=== PATIENT | female | born 1935 | race Caucasian/White ===

== ENCOUNTER 2016-12-01 09:49 | Inpatient (IN) ==
--- NOTE | 2016-12-01 10:04 | Emergency Department Note ---
Disposition Clinical Impression: CHF exacerbation Qualifiers: Congestive heart failure type: unspecified congestive heart failure type Qualified Code(s): I50.9 - Heart failure, unspecified Disposition: Admitted As Inpatient Condition: Fair General Adult HPI - General Chief complaint: ED Recheck/Abnormal Lab/Rx Stated complaint: fluid retention Time Seen by Provider: 12/01/16 09:59 Source: patient, family Mode of arrival: private vehicle Limitations: no limitations Nursing Notes Reviewed: Yes Vital Signs Reviewed: Yes - History of Present Illness Pt Subjective Complaint: Sent here by Venue Attendant to be admitted for increased fluid retention Onset (ago): week(s) Location: lower extremity (bilateral LE edema) Radiation: non-radiation Pain Severity: mild Pain Scale: 0 Quality: dull Consistency: intermittent Improves with: rest Worsens with: other (palpation) Associated symptoms: Reports: cough, shortness of breath, weakness Treatments Prior to Arrival: none (has not taken home dose of lasix yet) - Related Data Home Medications Medication Instructions Recorded Confirmed Apixaban [Eliquis] 2.5 mg PO BID 02/25/15 01/01/16 Cholecalciferol (Vitamin D3) 10,000 unit PO QWEEK 02/25/15 01/01/16 [Vitamin D3] Furosemide [Lasix] 60 mg PO DAILY 02/25/15 01/01/16 Gabapentin [Neurontin] 100 mg PO TID 02/25/15 01/01/16 Insulin Glargine,Hum.rec.anlog 32 unit SQ DAILY 02/25/15 01/01/16 [Lantus Solostar] Levothyroxine [Synthroid] 88 mcg PO DAILY 02/25/15 01/01/16 Metoprolol [Lopressor] 100 mg PO DAILY 02/25/15 01/01/16 Potassium Chloride 10 meq PO TID 02/25/15 01/01/16 Ropinirole [Requip] 6 mg PO HS 02/25/15 01/01/16 Tramadol HCl [Tramadol HCl ER] 100 mg PO Q6H PRN 02/25/15 01/01/16 Calcitriol [Rocaltrol] 0.25 mcg PO DAILY 01/01/16 01/01/16 Losartan Potassium [Cozaar] 100 mg PO DAILY 01/01/16 01/01/16 Sitagliptin Phosphate [Januvia] 50 mg PO DAILY 01/01/16 01/01/16 Allergies Allergy/AdvReac Type Severity Reaction Status Date / Time Latex Allergy See Uncoded 02/26/15 18:43 Comments All systems ED: reviewed and negative except as stated. Constitutional: Reports: weight change ("varies daily" 169-180). Denies: fever , chills, weakness, night sweats Cardiovascular: Reports: dyspnea on exertion, orthopnea, edema. Denies: chest pain, palpitations, syncope, paroxysmal nocturnal dyspnea Respiratory: Reports: cough, dyspnea. Denies: wheezes, hemoptysis, stridor, sputum production Gastrointestinal: Denies: abdominal pain, nausea, vomiting Genitourinary: Denies: urgency, dysuria, frequency, hematuria Musculoskeletal: Denies: back pain, joint swelling, arthralgia Integumentary: Denies: rash Neurological: Denies: confusion, abnormal gait, vertigo Hematological/Lymphatic: Denies: easy bleeding, easy bruising Past Medical History - Past Medical History Attestation: Yes The following information was validated with the patient. Source: patient, old records reviewed, obtained from family Medical history: Reports: CHF, DVT (right leg three years ago), diabetes, GERD, hyperlipidemia, hypertension, renal disease Surgical history: Reports: appendectomy, hysterectomy Psychiatric history: Reports: no psych history - Social History Smoking Status: Never smoker Smokeless Tobacco Status: No Alcohol use: Reports: none Drug use: Reports: none Physical Exam - General Limitations: no limitations General appearance: alert, in no apparent distress - Head Head exam: atraumatic, normocephalic, normal inspection - Eye Eye exam: Present: normal appearance, PERRL. Absent: scleral icterus, conjunctival injection, periorbital swelling - ENT ENT exam: mucous membranes moist - Neck Neck exam: Present: normal inspection, full ROM, trachea midline. Absent: meningismus - Chest Chest inspection: Present: normal inspection - Respiratory Respiratory exam: Absent: respiratory distress, wheezes, stridor, accessory muscle use, prolonged expiratory phase - Expanded Respiratory Exam Location: rales: Left, Right, Lower - Cardiovascular Cardiovascular exam: Present: regular rate, normal rhythm, systolic murmur - Abdominal Exam Abdominal exam: Present: soft, Non-Tender. Absent: distention - Extremities Exam Extremities exam: Present: full ROM, tenderness, normal capillary refill, pedal edema. Absent: joint swelling, calf tenderness - Expanded Lower Extremity Exam Upper leg exam: Absent: tenderness, swelling Knee exam: Absent: tenderness, swelling Lower leg exam: Present: tenderness, swelling, Achilles tendon intact. Absent: ecchymosis, erythema, Homans' sign Ankle exam: Present: full ROM, swelling. Absent: tenderness, ecchymosis, deformity, crepitus, erythema Foot/toe exam: Present: full ROM, swelling. Absent: tenderness, abrasion, ecchymosis, deformity, crepitus, erythema Neurovascular/Tendon exam: Present: normal capillary refill, normal fine/light touch. Absent: pulse deficit, motor deficit, sensory deficit, tendon deficit, extremity cold to touch, pallor, foot drop Gait: not tested/not observed - Neurological Exam Neurological exam: Present: alert, oriented X3, CN II-XII intact - Psychiatric Psychiatric exam: Present: normal affect, normal mood Course Vital Signs Temperature 97.7 F 12/01/16 09:50 Pulse Rate 84 12/01/16 09:50 Respiratory Rate 18 12/01/16 09:50 Blood Pressure 146/71 12/01/16 09:50 O2 Sat by Pulse Oximetry 96 12/01/16 09:50 Temperature 97.7 F 12/01/16 09:50 Pulse Rate 84 12/01/16 09:50 Respiratory Rate 18 12/01/16 09:50 Blood Pressure 146/71 12/01/16 09:50 O2 Sat by Pulse Oximetry 96 12/01/16 09:50 Oxygen Delivery Oxygen Delivery Room Air Medical Decision Making - Medical Records Medical records reviewed: Yes I reviewed the patient's medical records. - Lab Data Lab results reviewed: Yes I reviewed the patient's lab results. Result diagrams: 12/01/16 10:19 - Radiology Data Radiology results reviewed: Yes I reviewed the patient's radiology results. - EKG Data EKG #1 EKG attestation: Yes I reviewed and interpreted this EKG. EKG shows normal: sinus rhythm Rate: normal Rhythm: NSR [place]/QRS: left axis deviation Voltage: increased voltage throughout, c/w LVH Heart block present: 1st Degree (kayode 216) Interpretation: unchanged when compared to prior tracing (date) (except KAYODE increased from 202 to 216) Attestation Statement - Attestation Attestation: I examined this patient and my medical decision-making was reviewed with the RESOURCE RECOVERY SPECIALIST/PA/Advanced Practice Nurse/Resident Physician. I agree with the documented findings, disposition and treatment plan as described except to the extent set forth below. Face to face time provided Patient presents at the recommendation of her primary care provider for increasing dyspnea and peripheral edema. She has a history of CHF. Appears in no acute distress on exam. Family at bedside
[2016-12-01] MEDS ORDERED: Furosemide 40 MG/4 ML VIAL IVP ONE (10:30)
[2016-12-01 10:31] LABS: Basophils # 0.1 K/mcL (0.0-0.2); Basophils % 0.7 %; Eosinophils # 0.4 K/mcL (0.0-0.6); Eosinophils % 4.1 %; Hematocrit 38.2 % (35.3-44.9); Hemoglobin 11.4 g/dL (11.5-15.4); Immature Granulocytes % 0.6 % (0-4); Lymphocytes # 2.5 K/mcL (0.6-4.6); Lymphocytes % 27.5 %; Mean Corpuscular HGB Conc 29.8 g/dL (31.6-35.5); Mean Corpuscular Hemoglobin 23.4 pg (28.0-33.3); Mean Corpuscular Volume 78.3 fL (83.0-100.0); Mean Platelet Volume 9.6 fL (9.4-12.4); Monocytes # 0.7 K/mcL (0.0-1.3); Monocytes % 7.5 %; Neutrophils # 5.4 K/mcL (1.6-8.9); Platelet Count 301 K/mcL (140-400); Red Blood Count 4.88 M/mcL (3.82-4.97); Red Cell Distribution Width 16.2 % (11.5-14.5); Segmented Neutrophils % 59.6 %
[2016-12-01 10:41] LABS: INR 1.3; Prothrombin Time 14.1 Seconds (9.4-12.1)
[2016-12-01 10:43] LABS: Albumin 3.8 g/dL (3.5-5.0); Albumin/Globulin Ratio 1.1 (1.1-2.2); Bilirubin,Direct 0.2 mg/dL (0.0-0.5); Bilirubin,Indirect 0.3 mg/dL (0.0-1.2); Bilirubin,Total 0.5 mg/dL (0.2-1.2); Globulin 3.4 g/dL (2.4-3.5); Potassium 4.4 mEq/L (3.5-4.5); Total Protein 7.2 g/dL (6.0-8.3)
[2016-12-01 11:10] LABS: Activated Partial Thrombo Time 28.3 Seconds (26.0-36.0)
[2016-12-01 11:21] LABS: Bilirubin,Urine Negative (Negative); Blood,Urine Negative (Negative); Clarity,Urine Cloudy (Clear); Color,Urine Yellow (Yellow); Glucose,Urine (UA) Normal (Normal); Ketones,Urine Negative (Negative); Leukocyte Esterase,Urine Small (Negative); Nitrite,Urine Positive (Negative); Protein,Urine Negative (Neg-Trace); Urobilinogen,Urine Normal (Normal)
[2016-12-01 11:24] LABS: Bacteria,Urine Many per hpf (None-Few); Hyaline Casts,Urine None Seen per lpf (None-Few); RBC,Urine 0-3 per hpf (0-3); Squamous Epithelial Cell,Urine Moderate per lpf (None-Few); WBC,Urine 30-50 per hpf (0-3)
[2016-12-01] MEDS ORDERED: Acetaminophen 325 MG TABLET PO PRN (14:08)
[2016-12-01] MEDS ORDERED: Naloxone 0.4 MG/ML INJ IVP PRN (14:08)
[2016-12-01] MEDS ORDERED: Ondansetron ODT 4 MG TAB.RAPDIS SL PRN (14:08)
[2016-12-01] MEDS ORDERED: Gabapentin 100 MG CAPSULE PO PRN (14:10)
[2016-12-01] MEDS ORDERED: *HR* Dextrose 50 % in Water (Syg) 50 ML SYRINGE IVP PRN (14:36)
[2016-12-01] MEDS ORDERED: Dextrose Gel 15 GM PO PRN ×2 (14:36)
[2016-12-01] MEDS ORDERED: D5% in Water 1,000 ML IVC PRN (14:36)
[2016-12-01 15:10] LABS: Hemoglobin A1C 8.3 %
--- NOTE | 2016-12-01 15:45 | Internal Med History&Physical ---
Date of Encounter: 12/01/16 Time of Encounter: 15:42 Assessment and Plan (1) Acute on chronic congestive heart failure Current visit: Yes Status: Acute Patient with increased dyspnea on exertion, increasing bilateral lower extremity edema, coughing up white frothy sputum. Chest x-ray shows mild pulmonary vascular congestion without pulmonary edema and stable cardiomegaly. On exam patient has crackles in bilateral bases, bilateral lower extremity +3 edema. Echocardiogram from 2015 shows mild systolic and diastolic dysfunction, EF 45-50%. 40 mg Lasix IV push twice a day Daily weights Strict I's and O's Cardiac diet with 1.5 L fluid restriction Continuous classroom monitor trend troponins Echocardiogram in the morning Qualifiers: Congestive heart failure type: combined Qualified Code(s): I50.43 - Acute on chronic combined systolic (congestive) and diastolic (congestive) heart failure (2) Type 2 diabetes mellitus Current visit: Yes Status: Acute Diabetic diet Check A1c Check blood sugars before meals and at bedtime Basal dose of insulin 30u HS (home dose is 50u HS) Sliding scale correction dose before meals at bedtime hypoglycemic protocol Qualifiers: Diabetes mellitus complication status: with unspecified complications Diabetes mellitus termite technician insulin use: with termite technician use Qualified Code(s) : E11.8 - Type 2 diabetes mellitus with unspecified complications; Z79.4 - detention (current) use of insulin (3) Acute kidney injury superimposed on chronic kidney disease Current visit: Yes Status: Acute Creatinine 1.54, up from previous baseline. Hold valsartan, avoid NSAIDs. We are diuresing with Lasix, which may or may not deteriorate patient's kidney function. Recheck chemistry in the morning. (4) DVT prophylaxis Current visit: Yes Status: Acute anti-embolic stockings Patient on Eliquis, additional pharmacologic prophylaxis not indicated. Internal Medicine - H&P: HPI Chief complaint: shortness of breath Admitted From: Emergency Dept Plans for Post Hospital Care: Home History of present illness: Ms. Adams is a 81 year old female with hypertension, hyperlipidemia, chronic knee disease, atrial fibrillation, type 2 diabetes, CHF who presented to the emergency department today on the advice of the cardiology ELECTRIC REPAIR SUPERVISOR she saw in clinic yesterday. Patient has increased lower extremity edema, and has been coughing up frothy white sputum. Patient reports occasional chest pain, generalized weakness, shortness of breath on exertion. She denies any lightheadedness, palpitations, numbness or tingling. She reports occasional chest pain, not out of the ordinary for her and none today. Evaluation emergency department included a chest x-ray which showed mild pulmonary vascular congestion without pulmonary edema, and stable cardiomegaly. UA was positive for UTI. BNP was 143 , down from previous of 302. She would have AKA with creatinine of 1.54. On exam, patient alert and oriented, in no acute distress. Heart had a regular rhythm with normal rate, lungs had crackles in bilateral bases. Bilateral lower extremities had +4 pitting edema. Past Med Surg Social Fam HX - Past Medical History Medical history: CHF, DVT, diabetes, GERD, hyperlipidemia, hypertension, renal disease Psychiatric history: no psych history - Past Surgical History Surgical History: appendectomy, hysterectomy - Social History Smoking Status: Never smoker Smokeless Tobacco Status: No Alcohol use: none Drug use: none - Family History Mother Living Status: Age at : 98 Father Living Status: Age at : 62 Cause of : Cancer Hx Family Cancer: Yes Internal Medicine - H&P: Meds Apixaban [Eliquis] 2.5 mg PO BID 02/25/15 [History] Furosemide [Lasix] 80 mg PO DAILY 02/25/15 [History] Gabapentin [Neurontin] 100 mg PO TID PRN 02/25/15 [History] Insulin Glargine,Hum.rec.anlog [Lantus Solostar] 50 unit SQ HS 02/25/15 [History ] Levothyroxine [Synthroid] 88 mcg PO DAILY 02/25/15 [History] Potassium Chloride 10 meq PO TID 02/25/15 [History] Ropinirole [Requip] 6 mg PO HS 02/25/15 [History] Tramadol HCl [Tramadol HCl ER] 100 mg PO Q6H PRN 02/25/15 [History] Calcitriol [Rocaltrol] 0.25 mcg PO DAILY 01/01/16 [History] Losartan Potassium [Cozaar] 100 mg PO DAILY 01/01/16 [History] Sitagliptin Phosphate [Januvia] 50 mg PO DAILY 01/01/16 [History] Gluc/Vicente-MSM#1/Vit C/[place]/Bor [Cvs Nkohxefkzub-Nwfegz-WAU] 1 tab PO HS [History] Insulin ASPART [Novolog Flexpen] 12 unit SQ TIDWM MDD plus sliding scale [History] Metoprolol Succinate 100 mg PO DAILY 12/01/16 [History] Oxygen 2 l .ROUTE HS 12/01/16 [History] Allergies Latex Allergy (Uncoded 02/26/15 18:43) See Comments All Systems PM: A 10-system review of systems was performed and is negative for pertinent findings except as documented above in the HPI. - Constitutional Constitutional: weakness, no chills, no fever(s), no night sweats - EENT Eyes: no change in vision, no discharge, no pain, no photophobia Ears: no ear discharge, no ear pain, no tinnitus Nose, mouth and throat: no dysphagia, no nasal discharge, no neck pain, no sore throat - Cardiovascular Cardiovascular ROS IM: chest pain (occasional, none today), dyspnea, dyspnea on exertion, edema, no diaphoresis, no lightheadedness, no palpitations, no syncope - Respiratory Respiratory: cough, no dyspnea, no wheezing, no excessive phlegm production - Gastrointestinal Gastrointestinal: no abdominal pain, no diarrhea, no hematemesis, no hematochezia, no melena, no nausea, no vomiting - Genitourinary Genitourinary: no change in urinary stream, no dysuria, no flank pain, no hematuria - Musculoskeletal Musculoskeletal ROS IM: no numbness, no tingling - Integumentary Integumentary IM: no rash, no unusual bruising - Neurological Neurological ROS: no confusion, no convulsions, no focal weakness, no numbness, no tingling, no tremor(s) - Hematologic/Lymphatic Hematologic/Lymphatic: no easy bruising - Constitutional Vitals: Temp Pulse Resp BP Pulse Ox 97.7 F 93 16 109/50 94 12/01/16 09:50 12/01/16 14:09 12/01/16 14:20 12/01/16 14:20 12/01/16 14:09 General appearance: Present: A&O X 3, pleasant, no acute distress - Head Head exam: Present: atraumatic, normocephalic - Eye Eye exam: Present: PERRL, conjuntiva pink, sclera anicteric Pupils: Present: PERRL - Neck Neck exam general surgery: Present: supple, trachea midline. Absent: lymphadenopathy - Respiratory Respiratory exam: Present: rales (bilateral bases). Absent: accessory muscle use, rhonchi, wheezes - Cardiovascular Cardiovascular exam: Present: irregular rhythm, +S1, +S2. Absent: diastolic murmur, gallop, rubs, systolic murmur - GI/Abdominal GI/Abdominal exam: Present: normal bowel sounds, soft, no peritoneal signs. Absent: distended, tenderness - Extremities Exam Extremities exam: Present: pedal edema (BLE+3 edema), warm, radial pulses palpable and symetrical. Absent: calf tenderness, cyanotic - Neurological Exam Neurological exam: Present: CN II-XII intact, oriented X3, no focal deficits. Absent: facial droop, speech deficit - Skin Skin exam: Present: dry, intact Internal Med - H&P Results - Labs CBC & Chem 7: 12/01/16 10:19 12/01/16 10:19 Labs: All Lab Results (24 Hours) 12/01/16 12/01/16 12/01/16 Range/Units 10:19 10:19 10:19 WBC 9.1 (4.3-11.1) K/mcL RBC 4.88 (3.82-4.97) M/mcL Hgb 11.4 L (11.5-15.4) g/dL Hct 38.2 (35.3-44.9) % MCV 78.3 L (83.0-100.0) fL MCH 23.4 L (28.0-33.3) pg MCHC 29.8 L (31.6-35.5) g/dL RDW 16.2 H (11.5-14.5) % Plt Count 301 (140-400) K/mcL MPV 9.6 (9.4-12.4) fL Immature Gran % 0.6 (0-4) % Seg Neutrophils % 59.6 % Lymphocytes % 27.5 % Monocytes % 7.5 % Eosinophils % 4.1 % Basophils % 0.7 % Neutrophils # 5.4 (1.6-8.9) K/mcL Lymphocytes # 2.5 (0.6-4.6) K/mcL Monocytes # 0.7 (0.0-1.3) K/mcL Eosinophils # 0.4 (0.0-0.6) K/mcL Basophils # 0.1 (0.0-0.2) K/mcL PT 14.1 H (9.4-12.1) Seconds INR 1.3 APTT 28.3 (26.0-36.0) Seconds Sodium 140 (136-145) mEq/L Potassium 4.4 (3.5-4.5) mEq/L Chloride 103 (98-109) mEq/L Carbon Dioxide 30 H (19-29) mEq/L BUN 30 H (7-20) mg/dL Creatinine 1.54 H (0.57-1.11) mg/dL Est GFR ( Amer) 39 L (> 60) Est GFR (Non-Af Amer) 32 L (> 60) BUN/Creatinine Ratio 19 (6-26) Glucose 159 H (70-99) mg/dL POC Glucose (58-89) Est Mean Plasma Glucose mg/dl Hemoglobin A1c ( - 5.6) % Calculated Osmolality 300 (280-300) Calcium 10.0 (8.6-10.8) mg/dL Total Bilirubin 0.5 (0.2-1.2) mg/dL Direct Bilirubin 0.2 (0.0-0.5) mg/dL Indirect Bilirubin 0.3 (0.0-1.2) mg/dL AST 17 (5-34) Units/L ALT 14 (0-55) Units/L Alkaline Phosphatase 71 (38-126) Units/L Troponin I (0-0.03) ng/mL B-Natriuretic Peptide (0-100) pg/mL Serum Total Protein 7.2 (6.0-8.3) g/dL Albumin 3.8 (3.5-5.0) g/dL Globulin 3.4 (2.4-3.5) g/dL Albumin/Globulin Ratio 1.1 (1.1-2.2) Urine Color (Yellow) Urine Clarity (Clear) Urine pH (5.0-8.0) pH Units Ur Specific [place] (1.010-1.025) Urine Protein (Neg-Trace) mg/dL Urine Glucose (UA) (Normal) mg/dL Urine Ketones (Negative) mg/dL Urine Blood (Negative) Urine Nitrite (Negative) Urine Bilirubin (Negative) Urine Urobilinogen (Normal) mg/dL Ur Leukocyte Esterase (Negative) Urine Microscopic RBC (0-3) per hpf Urine Microscopic WBC (0-3) per hpf Ur Squamous Epith Cells (None-Few) per lpf Urine Bacteria (None-Few) per hpf Hyaline Casts (None-Few) per lpf Ur Culture Indicated? (NO) 12/01/16 12/01/16 12/01/16 Range/Units 10:19 10:19 10:19 WBC (4.3-11.1) K/mcL RBC (3.82-4.97) M/mcL Hgb (11.5-15.4) g/dL Hct (35.3-44.9) % MCV (83.0-100.0) fL MCH (28.0-33.3) pg MCHC (31.6-35.5) g/dL RDW (11.5-14.5) % Plt Count (140-400) K/mcL MPV (9.4-12.4) fL Immature Gran % (0-4) % Seg Neutrophils % % Lymphocytes % % Monocytes % % Eosinophils % % Basophils % % Neutrophils # (1.6-8.9) K/mcL Lymphocytes # (0.6-4.6) K/mcL Monocytes # (0.0-1.3) K/mcL Eosinophils # (0.0-0.6) K/mcL Basophils # (0.0-0.2) K/mcL PT (9.4-12.1) Seconds INR APTT (26.0-36.0) Seconds Sodium (136-145) mEq/L Potassium (3.5-4.5) mEq/L Chloride (98-109) mEq/L Carbon Dioxide (19-29) mEq/L BUN (7-20) mg/dL Creatinine (0.57-1.11) mg/dL Est GFR ( Amer) (> 60) Est GFR (Non-Af Amer) (> 60) BUN/Creatinine Ratio (6-26) Glucose (70-99) mg/dL POC Glucose (58-89) Est Mean Plasma Glucose 192 mg/dl Hemoglobin A1c 8.3 H ( - 5.6) % Calculated Osmolality (280-300) Calcium (8.6-10.8) mg/dL Total Bilirubin (0.2-1.2) mg/dL Direct Bilirubin (0.0-0.5) mg/dL Indirect Bilirubin (0.0-1.2) mg/dL AST (5-34) Units/L ALT (0-55) Units/L Alkaline Phosphatase (38-126) Units/L Troponin I 0.01 (0-0.03) ng/mL B-Natriuretic Peptide 163 H (0-100) pg/mL Serum Total Protein (6.0-8.3) g/dL Albumin (3.5-5.0) g/dL Globulin (2.4-3.5) g/dL Albumin/Globulin Ratio (1.1-2.2) Urine Color (Yellow) Urine Clarity (Clear) Urine pH (5.0-8.0) pH Units Ur Specific [place] (1.010-1.025) Urine Protein (Neg-Trace) mg/dL Urine Glucose (UA) (Normal) mg/dL Urine Ketones (Negative) mg/dL Urine Blood (Negative) Urine Nitrite (Negative) Urine Bilirubin (Negative) Urine Urobilinogen (Normal) mg/dL Ur Leukocyte Esterase (Negative) Urine Microscopic RBC (0-3) per hpf Urine Microscopic WBC (0-3) per hpf Ur Squamous Epith Cells (None-Few) per lpf Urine Bacteria (None-Few) per hpf Hyaline Casts (None-Few) per lpf Ur Culture Indicated? (NO) 12/01/16 12/01/16 12/01/16 Range/Units 10:30 11:59 15:47 WBC (4.3-11.1) K/mcL RBC (3.82-4.97) M/mcL Hgb (11.5-15.4) g/dL Hct (35.3-44.9) % MCV (83.0-100.0) fL MCH (28.0-33.3) pg MCHC (31.6-35.5) g/dL RDW (11.5-14.5) % Plt Count (140-400) K/mcL MPV (9.4-12.4) fL Immature Gran % (0-4) % Seg Neutrophils % % Lymphocytes % % Monocytes % % Eosinophils % % Basophils % % Neutrophils # (1.6-8.9) K/mcL Lymphocytes # (0.6-4.6) K/mcL Monocytes # (0.0-1.3) K/mcL Eosinophils # (0.0-0.6) K/mcL Basophils # (0.0-0.2) K/mcL PT (9.4-12.1) Seconds INR APTT (26.0-36.0) Seconds Sodium (136-145) mEq/L Potassium (3.5-4.5) mEq/L Chloride (98-109) mEq/L Carbon Dioxide (19-29) mEq/L BUN (7-20) mg/dL Creatinine (0.57-1.11) mg/dL Est GFR ( Amer) (> 60) Est GFR (Non-Af Amer) (> 60) BUN/Creatinine Ratio (6-26) Glucose (70-99) mg/dL POC Glucose 117 H 263 H (58-89) Est Mean Plasma Glucose mg/dl Hemoglobin A1c ( - 5.6) % Calculated Osmolality (280-300) Calcium (8.6-10.8) mg/dL Total Bilirubin (0.2-1.2) mg/dL Direct Bilirubin (0.0-0.5) mg/dL Indirect Bilirubin (0.0-1.2) mg/dL AST (5-34) Units/L ALT (0-55) Units/L Alkaline Phosphatase (38-126) Units/L Troponin I (0-0.03) ng/mL B-Natriuretic Peptide (0-100) pg/mL Serum Total Protein (6.0-8.3) g/dL Albumin (3.5-5.0) g/dL Globulin (2.4-3.5) g/dL Albumin/Globulin Ratio (1.1-2.2) Urine Color Yellow (Yellow) Urine Clarity Cloudy A (Clear) Urine pH 7.0 (5.0-8.0) pH Units Ur Specific [place] 1.020 (1.010-1.025) Urine Protein Negative (Neg-Trace) mg/dL Urine Glucose (UA) Normal (Normal) mg/dL Urine Ketones Negative (Negative) mg/dL Urine Blood Negative (Negative) Urine Nitrite Positive A (Negative) Urine Bilirubin Negative (Negative) Urine Urobilinogen Normal (Normal) mg/dL Ur Leukocyte Esterase Small H (Negative) Urine Microscopic RBC 0-3 (0-3) per hpf Urine Microscopic WBC 30-50 H (0-3) per hpf Ur Squamous Epith Cells Moderate H (None-Few) per lpf Urine Bacteria Many H (None-Few) per hpf Hyaline Casts None Seen (None-Few) per lpf Ur Culture Indicated? YES A (NO) 12/01/16 Range/Units 17:07 WBC (4.3-11.1) K/mcL RBC (3.82-4.97) M/mcL Hgb (11.5-15.4) g/dL Hct (35.3-44.9) % MCV (83.0-100.0) fL MCH (28.0-33.3) pg MCHC (31.6-35.5) g/dL RDW (11.5-14.5) % Plt Count (140-400) K/mcL MPV (9.4-12.4) fL Immature Gran % (0-4) % Seg Neutrophils % % Lymphocytes % % Monocytes % % Eosinophils % % Basophils % % Neutrophils # (1.6-8.9) K/mcL Lymphocytes # (0.6-4.6) K/mcL Monocytes # (0.0-1.3) K/mcL Eosinophils # (0.0-0.6) K/mcL Basophils # (0.0-0.2) K/mcL PT (9.4-12.1) Seconds INR APTT (26.0-36.0) Seconds Sodium (136-145) mEq/L Potassium (3.5-4.5) mEq/L Chloride (98-109) mEq/L Carbon Dioxide (19-29) mEq/L BUN (7-20) mg/dL Creatinine (0.57-1.11) mg/dL Est GFR ( Amer) (> 60) Est GFR (Non-Af Amer) (> 60) BUN/Creatinine Ratio (6-26) Glucose (70-99) mg/dL POC Glucose (58-89) Est Mean Plasma Glucose mg/dl Hemoglobin A1c ( - 5.6) % Calculated Osmolality (280-300) Calcium (8.6-10.8) mg/dL Total Bilirubin (0.2-1.2) mg/dL Direct Bilirubin (0.0-0.5) mg/dL Indirect Bilirubin (0.0-1.2) mg/dL AST (5-34) Units/L ALT (0-55) Units/L Alkaline Phosphatase (38-126) Units/L Troponin I 0.02 (0-0.03) ng/mL B-Natriuretic Peptide (0-100) pg/mL Serum Total Protein (6.0-8.3) g/dL Albumin (3.5-5.0) g/dL Globulin (2.4-3.5) g/dL Albumin/Globulin Ratio (1.1-2.2) Urine Color (Yellow) Urine Clarity (Clear) Urine pH (5.0-8.0) pH Units Ur Specific [place] (1.010-1.025) Urine Protein (Neg-Trace) mg/dL Urine Glucose (UA) (Normal) mg/dL Urine Ketones (Negative) mg/dL Urine Blood (Negative) Urine Nitrite (Negative) Urine Bilirubin (Negative) Urine Urobilinogen (Normal) mg/dL Ur Leukocyte Esterase (Negative) Urine Microscopic RBC (0-3) per hpf Urine Microscopic WBC (0-3) per hpf Ur Squamous Epith Cells (None-Few) per lpf Urine Bacteria (None-Few) per hpf Hyaline Casts (None-Few) per lpf Ur Culture Indicated? (NO) - Diagnostic Studies Chest x-ray Additional comments: Chest X-Ray 12/01/16 10:03 IMPRESSION: Stable mild cardiomegaly. Pulmonary vascular congestion without overt pulmonary edema. D/ / Monster Mcgowan MD / Monster Mcgowan MD Interpreting Provider: Monster Mcgowan MD
[2016-12-01] MEDS: Furosemide 40 MG/4 ML VIAL IVP SCH (17:02)
[2016-12-01] MEDS: Insulin LISPRO 300 UNITS/3 ML VIAL SQ SCH ×2 (17:04→21:12)
[2016-12-01] MEDS: traMADol 50 MG TABLET PO PRN (18:44)
--- NOTE | 2016-12-01 20:27 | Electrocardiograph Report ---
[place] [id number] Test Date: 2016-12-01 Pat Name: Cori Adams Department: 105 Room: 2A26 Gender: F Rn Flight: SAM : [id number] Requested By: Leeann Pandya Order Number: [id number] Reading MD: Yg Bauer MD Measurements Intervals [place] Rate: 89 P: 83 MD: 216 QRS: -21 QRSD: 105 T: 72 QT: 379 QTc: 426 Interpretive Statements SINUS RHYTHM WITH FIRST DEGREE AV BLOCK BORDERLINE LEFT AXIS DEVIATION Poor R wave progression LEFT VENTRICULAR HYPERTROPHY AND ST-T CHANGE Electronically Signed On 12-01-2016 20:26:16 EDT by Yg Bauer MD
[2016-12-01] MEDS: APIXABAN 2.5 MG TABLET PO SCH (21:11)
[2016-12-01] MEDS: Insulin DETEMIR 100 UNIT/ML X5UNITS SQ SCH (21:12)
[2016-12-02] MEDS: traMADol 50 MG TABLET PO PRN ×2 (00:04→05:54)
[2016-12-02 03:27] LABS: Basophils # 0.1 K/mcL (0.0-0.2); Basophils % 0.6 %; Eosinophils # 0.4 K/mcL (0.0-0.6); Eosinophils % 4.1 %; Hematocrit 36.9 % (35.3-44.9); Hemoglobin 11.3 g/dL (11.5-15.4); Immature Granulocytes % 0.5 % (0-4); Lymphocytes # 2.2 K/mcL (0.6-4.6); Mean Corpuscular HGB Conc 30.6 g/dL (31.6-35.5); Mean Corpuscular Hemoglobin 24.1 pg (28.0-33.3); Mean Corpuscular Volume 78.7 fL (83.0-100.0); Mean Platelet Volume 9.9 fL (9.4-12.4); Monocytes # 0.6 K/mcL (0.0-1.3); Monocytes % 6.2 %; Neutrophils # 6.6 K/mcL (1.6-8.9); Platelet Count 280 K/mcL (140-400); Red Blood Count 4.69 M/mcL (3.82-4.97); Red Cell Distribution Width 16.4 % (11.5-14.5); Segmented Neutrophils % 66.6 %
[2016-12-02 03:38] LABS: Calcium 10.2 mg/dL (8.6-10.8); Chol/HDL Ratio 3.6 (0-4.9); Potassium 4.1 mEq/L (3.5-4.5)
[2016-12-02] MEDS: APIXABAN 2.5 MG TABLET PO SCH ×2 (08:34→21:52)
[2016-12-02] MEDS: Furosemide 40 MG/4 ML VIAL IVP SCH ×2 (08:34→15:52)
[2016-12-02] MEDS: Metoprolol XL (24 HR) Succ 50 MG TAB.ER.24H PO SCH (08:34)
[2016-12-02] MEDS: Insulin LISPRO 300 UNITS/3 ML VIAL SQ SCH ×4 (08:34→22:01)
--- NOTE | 2016-12-02 10:27 | Internal Med Progress Note ---
Date of Encounter: 12/02/16 Time of Encounter: 10:25 - Assessment and plan (1) UTI (urinary tract infection) Current Visit: Yes Status: Acute Assessment and plan: asymptomatic. Urinalysis suggestive of UTI, continue IV Rocephin and follow up final urine culture. Preliminary urine culture grows gram-negative rods. Qualifiers: Urinary tract infection type: site unspecified Hematuria presence: without hematuria Qualified Code(s): N39.0 - Urinary tract infection, site not specified (2) CHF exacerbation Current Visit: Yes Status: Acute Assessment and plan: mproving clinically. Repeat echocardiogram [id number]% ejection fraction which is reduced from her previous echocardiogram, with global left ventricular hypokinesis mild left atrial dilation. Cardiology consulted,appreciate recommendations. Agree with current management and recommend aspirin and statin. Continue IV Lasix and beta lindy, hold losartan for now. Fluid restriction, urine output monitoring. Continue telemetry monitoring. Qualifiers: Congestive heart failure type: systolic Qualified Code(s): I50.23 - Acute on chronic systolic (congestive) heart failure (3) Hypothyroidism Current Visit: Yes Status: Chronic Assessment and plan: continue levothyroxin. Qualifiers: Hypothyroidism type: unspecified Qualified Code(s): E03.9 - Hypothyroidism , unspecified (4) Type 2 diabetes mellitus Current Visit: Yes Status: Chronic Assessment and plan: Accu-Chek blood glucose monitoring with basal bolus insulin regimen. Diabetic diet. Qualifiers: Diabetes mellitus complication status: with kidney complications Diabetes mellitus complication detail: with chronic kidney disease Diabetes mellitus manager intermediate insulin use: with manager intermediate use Chronic kidney disease stage: stage 3 (moderate) Qualified Code(s): E11.22 - Type 2 diabetes mellitus with diabetic chronic kidney disease; N18.3 - Chronic kidney disease, stage 3 ( moderate); Z79.4 - residential (current) use of insulin (5) Acute kidney injury superimposed on chronic kidney disease Current Visit: Yes Status: Chronic Assessment and plan: stable kidney function; continue to monitor and avoid new nephrotoxic agents; (6) DVT (deep venous thrombosis) Current Visit: Yes Status: Chronic Assessment and plan: Patient noted to be on Eliquis for mcc anticoagulation for recurrent DVT; continue the same and repeat Venous Doppler of right LE for acute DVT; Qualifiers: DVT location: lower extremity Affected thrombotic vein of extremity: unspecified vein of extremity Laterality: right Chronicity: chronic Qualified Code(s): 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 Absent: accessory muscle use, rales, rhonchi, wheezes - Cardiovascular Cardiovascular exam: Present: irregular rhythm, +S1, +S2, systolic murmur. Absent: diastolic murmur, gallop, rubs - GI/Abdominal GI/Abdominal exam: Present: normal bowel sounds, soft, no peritoneal signs. Absent: distended, tenderness - Extremities Exam Extremities exam: Present: full ROM, pedal edema (improving), tenderness (Right leg tenderness+), warm, radial pulses palpable and symetrical. Absent: calf tenderness, cyanotic Internal Medicine: Result - Labs CBC & Chem 7: 12/02/16 03:06 12/02/16 03:06 Labs: Short CBC 12/02/16 Range/Units 03:06 WBC 10.0 (4.3-11.1) K/mcL Hgb 11.3 L (11.5-15.4) g/dL Hct 36.9 (35.3-44.9) % Plt Count 280 (140-400) K/mcL Neutrophils # 6.6 (1.6-8.9) K/mcL BMP 12/02/16 03:06 Sodium 141 Potassium 4.1 Chloride 102 Carbon Dioxide 29 BUN 31 H Creatinine 1.58 H Glucose 149 H Calcium 10.2 Cardiac Enzymes 12/01/16 12/01/16 Range/Units 17:07 22:25 Troponin I 0.02 0.03 (0-0.03) ng/mL - ABG Interpretation ABG results: PT/INR, D-dimer PT 14.1 Seconds (9.4-12.1) H 12/01/16 10:19 Consult Discharge Plan - Plan Referrals: Leeann Pedersen CNP [Primary Care Provider] - (Web requested 12/01/16)
--- NOTE | 2016-12-02 12:00 | Cardiology Consult Note ---
Date of Encounter: 12/02/16 Time of Encounter: 11:54 Assessment and Plan (1) Acute on chronic congestive heart failure Current Visit: Yes Status: Acute H/o mild non-ischemic cardiomyopathy with EF 45% in 2014. TTE this admission shows severe global systolic dysfunction. EF 25-30%. Mild MR. [facility] 01/2016 showed mild non-obstructive CAD. No current chest pain. Reports mild chest pain in the past few months. No indication for re-peat [facility]. Presented in fluid overload. Now improved after IV lasix. Continue toprol Xl. No gómez-inhibitor d/t A/CKD. Continue IV lasix. Negative 550 ml overnight. -1.7 kg. CHF education reviewed with patient and family. Strict I&O and daily weight. Low sodium diet. Qualifiers: Congestive heart failure type: combined Qualified Code(s): I50.43 - Acute on chronic combined systolic (congestive) and diastolic (congestive) heart failure (2) CAD (coronary artery disease) Current Visit: Yes Status: Chronic H/o mild CAD on [facility] 01/2016. No current chest pain. Troponin negative. Qualifiers: Coronary Disease-Associated Artery/Lesion type: pala artery [place] vs. transplanted heart: pala heart Associated angina: without angina Qualified Code(s): I25.10 - Atherosclerotic heart disease of pala coronary artery without angina pectoris (3) Atrial fibrillation Current Visit: Yes Status: Ruled-out Patient reported to have afib on EKG. EKG reviewed and shows SR with first degree block. Telemetry review does not show any afib. Patient reports history of "irregular heart rhythm." Records reviewed. No documented afib. She is on eliquis for history of DVT. Qualifiers: Atrial fibrillation type: unspecified Qualified Code(s): I48.91 - Unspecified atrial fibrillation Discussion w patient/family: The assessment and plan as outlined above was discussed with the patient and/or family members who expressed understanding and agreement. All questions were answered. Thank you for involving us in the care of your patient. Please call with any questions. History of Present Illness Consult date: 12/02/16 Requesting physician: Carlotta Ramos Consult reason: Acute on chronic systolic CHF Chief complaint: SOB, orthopnea, BLE edema History of present illness: Ms. Adams is an 81 year old female with PMH of CKD, DM, lower extremity cellulitis, leg cramping, hx of DVT on Eliquis, CHF EF 45-50% with no significant CAD on most recent [facility] 01/2016, previous mild-moderate MR. She was recommended to go to the ER after a recent cardiology office visit. She c/o increasing BLE edema, 2 pillow orthopnea, and abdominal distension. She reports a 32 lb weight gain over the last year. She presented to the ER and initial work -up included CXR that showed cardiomegaly with pulmonary vascular congestion with no acute pulmonary edema and BNP elevated at 163. She had mild DANA on CKD. She is being treated with IV lasix and symptoms are improving. Cardiology consulted for abnormal echocardiogram. Past Med Surg Social Fam HX - Past Medical History Medical history: atrial fibrillation (Patient thinks she has a history of afib in the past. Not previously documented. ), CHF, DVT, diabetes, GERD, hyperlipidemia, hypertension, renal disease Psychiatric history: no psych history - Past Surgical History Surgical History: appendectomy, hysterectomy - Social History Smoking Status: Never smoker Smokeless Tobacco Status: No Alcohol use: none Drug use: none - Family History Mother Living Status: Age at : 98 Father Living Status: Age at : 62 Cause of : Cancer Hx Family Cancer: Yes Medications and Allergies Apixaban [Eliquis] 2.5 mg PO BID 02/25/15 [History] Furosemide [Lasix] 80 mg PO DAILY 02/25/15 [History] Gabapentin [Neurontin] 100 mg PO TID PRN 02/25/15 [History] Insulin Glargine,Hum.rec.anlog [Lantus Solostar] 50 unit SQ HS 02/25/15 [History ] Levothyroxine [Synthroid] 88 mcg PO DAILY 02/25/15 [History] Potassium Chloride 10 meq PO TID 02/25/15 [History] Ropinirole [Requip] 6 mg PO HS 02/25/15 [History] Tramadol HCl [Tramadol HCl ER] 100 mg PO Q6H PRN 02/25/15 [History] Calcitriol [Rocaltrol] 0.25 mcg PO DAILY 01/01/16 [History] Losartan Potassium [Cozaar] 100 mg PO DAILY 01/01/16 [History] Sitagliptin Phosphate [Januvia] 50 mg PO DAILY 01/01/16 [History] Gluc/Vicente-MSM#1/Vit C/[place]/Bor [Cvs Rsyvleprsyy-Bynnfz-EEW] 1 tab PO HS [History] Insulin ASPART [Novolog Flexpen] 12 unit SQ TIDWM MDD plus sliding scale [History] Metoprolol Succinate 100 mg PO DAILY 12/01/16 [History] Oxygen 2 l .ROUTE HS 12/01/16 [History] Allergies Latex Allergy (Uncoded 02/26/15 18:43) See Comments All Systems Review: A 10-system review of systems was performed and is negative for pertinent findings except as documented above in the HPI. Physical Examination Vital Signs, Last 4 Hours Temp Pulse Resp BP Pulse Ox 12/02/16 11:10 98.5 F 78 16 115/55 92 12/02/16 08:45 92 12/02/16 08:29 98.2 F 78 16 106/63 90 General: Conversant, No Apparent Distress HEENT: Atraumatic, Normocephaly, Mucus Membranes Moist Neck: No JVD, Normal carotid pulses Cardiac: Reg Rate and Rhythm, Normal S1 and S2, No Murmur Lungs: Normal Breath Sounds, No Wheeze, Rales, Rhonchi Neuro: Alert and responsive, No focal deficits noted Abdomen: Soft, Non-Tender Skin: No rashes noted on visualized skin Musculoskeletal: No Chest Wall Tenderness Extremities: No Clubbing, No Cyanosis, Normal Pulses, Other (1+ ankle edema. ) Results 12/02/16 03:06 12/02/16 03:06 Lab Results 12/01/16 12/01/16 12/02/16 17:07 22:25 03:06 WBC 10.0 Hgb 11.3 L Hct 36.9 Plt Count 280 Sodium Potassium Chloride Carbon Dioxide BUN Creatinine Glucose Calcium Troponin I 0.02 0.03 12/02/16 03:06 WBC Hgb Hct Plt Count Sodium 141 Potassium 4.1 Chloride 102 Carbon Dioxide 29 BUN 31 H Creatinine 1.58 H Glucose 149 H Calcium 10.2 Troponin I - Imaging and Cardiology Echo: report reviewed - EKG Interpretation EKG results cardiology: personally reviewed (NSR with first degree block. No acute ST changes.) Consult Discharge Plan - Plan Referrals: Leeann Pedersen CNP [Primary Care Provider] - (Web requested 12/01/16)
[2016-12-02] MEDS: Insulin DETEMIR 100 UNIT/ML X5UNITS SQ SCH (21:55)
[2016-12-03] MEDS: traMADol 50 MG TABLET PO PRN (05:24)
[2016-12-03] MEDS: Insulin LISPRO 300 UNITS/3 ML VIAL SQ SCH ×2 (06:53→11:40)
[2016-12-03] MEDS: Metoprolol XL (24 HR) Succ 50 MG TAB.ER.24H PO SCH (07:51)
[2016-12-03] MEDS: APIXABAN 2.5 MG TABLET PO SCH (07:51)
[2016-12-03] MEDS ORDERED: Furosemide 40 MG TABLET PO SCH (08:00)
[2016-12-03] MEDS ORDERED: Aspirin Enteric Coated 81 MG Tablet PO SCH (09:00)
--- NOTE | 2016-12-03 09:06 | Discharge Summary ---
Date of Encounter: 12/03/16 Time of Encounter: 08:59 - Discharge Diagnosis (1) UTI (urinary tract infection) Priority: Primary Status: Acute Qualifiers: Urinary tract infection type: site unspecified Hematuria presence: without hematuria Qualified Code(s): N39.0 - Urinary tract infection, site not specified (2) CHF exacerbation Priority: Primary Status: Acute Qualifiers: Congestive heart failure type: systolic Qualified Code(s): I50.23 - Acute on chronic systolic (congestive) heart failure (3) Hypothyroidism Priority: Secondary Status: Chronic Qualifiers: Hypothyroidism type: unspecified Qualified Code(s): E03.9 - Hypothyroidism , unspecified (4) Type 2 diabetes mellitus Priority: Secondary Status: Chronic Qualifiers: Diabetes mellitus complication status: with kidney complications Diabetes mellitus complication detail: with chronic kidney disease Diabetes mellitus longterm insulin use: with longterm use Chronic kidney disease stage: stage 3 (moderate) Qualified Code(s): E11.22 - Type 2 diabetes mellitus with diabetic chronic kidney disease; N18.3 - Chronic kidney disease, stage 3 ( moderate); Z79.4 - [facility] (current) use of insulin (5) Acute kidney injury superimposed on chronic kidney disease Priority: Primary Status: Chronic (6) DVT (deep venous thrombosis) Priority: Secondary Status: Chronic Qualifiers: DVT location: lower extremity Affected thrombotic vein of extremity: unspecified vein of extremity Laterality: right Chronicity: chronic Qualified Code(s): I82.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 Atorvastatin [Lipitor] 40 mg PO HS #30 tablet Furosemide [Lasix] 40 mg PO DAILY #30 tablet Home Medications: Apixaban [Eliquis] 2.5 mg PO BID 02/25/15 [History] Gabapentin [Neurontin] 100 mg PO TID PRN 02/25/15 [History] Insulin Glargine,Hum.rec.anlog [Lantus Solostar] 50 unit SQ HS 02/25/15 [History ] Levothyroxine [Synthroid] 88 mcg PO DAILY 02/25/15 [History] Potassium Chloride 10 meq PO TID 02/25/15 [History] Ropinirole [Requip] 6 mg PO HS 02/25/15 [History] Tramadol HCl [Tramadol HCl ER] 100 mg PO Q6H PRN 02/25/15 [History] Calcitriol [Rocaltrol] 0.25 mcg PO DAILY 01/01/16 [History] Losartan Potassium [Cozaar] 100 mg PO DAILY 01/01/16 [History] Sitagliptin Phosphate [Januvia] 50 mg PO DAILY 01/01/16 [History] Gluc/Vicente-MSM#1/Vit C/[place]/Bor [Cvs Mptqxypjylz-Xkuugk-WGP] 1 tab PO HS [History] Insulin ASPART [Novolog Flexpen] 12 unit SQ TIDWM MDD plus sliding scale [History] Metoprolol Succinate 100 mg PO DAILY 12/01/16 [History] Oxygen 2 l .ROUTE HS 12/01/16 [History] Aspirin Enteric Coated [Aspirin EC] 81 mg PO DAILY #30 tablet. 12/03/16 [Rx] Atorvastatin [Lipitor] 40 mg PO HS #30 tablet 12/03/16 [Rx] Furosemide [Lasix] 40 mg PO DAILY #30 tablet 12/03/16 [Rx] Allergies/Adverse Reactions: Allergies Latex Allergy (Uncoded 02/26/15 18:43) See Comments Date of admission: 12/02/16 14:55 Primary care physician: Leeann Pedersen, Discharging clinician: Carlotta Ramos Anticipated date of discharge: 12/03/16 - Patient Status Disposition: Home Health Service Condition: Fair Functional capacity at discharge: uses cane/walker Overall status at discharge: patient is progressing back to baseline - Discharge Instructions Instructions: Heart Failure (DC), Urinary Tract Infection in Women (DC), Diabetes Mellitus Type 2 in Adults (DC) Follow Up With: Leeann Pedersen CNP [Primary Care Provider] - (Web requested 12/01/16) Forms: ED Satisfaction Letter - Diet and Activity Activity: as per physical therapy, wear oxygen at night Diet: diabetic diet, low fat, low cholesterol, low salt diet (fluid restriction to 1.2L/day) Hospital course: Ms. Adams is a 81 year old female with history of CHF, admitted with worsening shortness of breath, leg swelling and fatigue. She was noted to be in acute exacerbation of CHF and was started on IV diuretics along with fluid restriction , urine output monitoring and telemetry monitoring. She responded well to this treatment and felt symptomatically better with much improved leg swelling. Echocardiogram was done, official report showing decreased ejection fraction compared to the previous echo, 25-30% with global systolic dysfunction and no significant valvular abnormality. Cardiology was consulted and agreed with current management and recommend to continue beta lindy, ARB and outpatient follow-up for repeat echocardiogram in 6-8 weeks and in the event of persistent systolic dysfunction, she may need ischemic workup. Patient is currently medically stable for discharge with outpatient follow-up. She was also noted to have asymptomatic UTI and received 3 days of IV antibiotics while in the hospital. Physical therapy evaluation was completed and recommend home health services; referral for this has been completed. - Time Spent with Patient Total time spent providing and/or coordinating discharge services: Greater than 30 minutes (45 min) - Constitutional Vitals: Temp Pulse Resp BP Pulse Ox 97.8 F 75 18 146/82 91 12/03/16 06:45 12/03/16 06:45 12/03/16 06:45 12/03/16 06:45 12/03/16 07:58 General appearance: Present: A&O X 3, answers questions appropriately - Respiratory Respiratory exam: Present: CTAB. Absent: accessory muscle use, rales, rhonchi, wheezes - Cardiovascular Cardiovascular exam: Present: RRR, +S1, +S2, systolic murmur. Absent: diastolic murmur, gallop, rubs
--- NOTE | 2016-12-03 09:08 | Physician Discharge Referral ---
Home Health/Hosp Referral Info Transfer to: Home Health Attending Provider: Carlotta Ramos Provider in Charge Post Discharge: PCP - Diagnosis (1) UTI (urinary tract infection) Priority: Primary Status: Acute (2) CHF exacerbation Priority: Primary Status: Acute (3) Hypothyroidism Priority: Secondary Status: Chronic (4) Type 2 diabetes mellitus Priority: Secondary Status: Chronic (5) Acute kidney injury superimposed on chronic kidney disease Priority: Primary Status: Chronic (6) DVT (deep venous thrombosis) Priority: Secondary Status: Chronic - Respiratory Orders Oxygen / L per min (2L/min via NC at night) Smoking Cessation: Smoking cessation has been advised. For more information, call the [place] [employer] Quit Line at 6-122-RIQQ-NOW. - Diet/Nutrition Diet/Nutrition Orders: Cardiac (fluid restriction to 1.2L/day), No Concentrated Sweets (diabetic) - Activity Activity Orders: Ambulate - Services Needed Following services are medically necessary services: Nursing, Home Health Aide, Physical Therapy, Occupational Therapy - Transfer Medications Prescriptions: Aspirin Enteric Coated [Aspirin EC] 81 mg PO DAILY #30 tablet. Atorvastatin [Lipitor] 40 mg PO HS #30 tablet Furosemide [Lasix] 40 mg PO DAILY #30 tablet Home Medications: Apixaban [Eliquis] 2.5 mg PO BID 02/25/15 [History] Gabapentin [Neurontin] 100 mg PO TID PRN 02/25/15 [History] Insulin Glargine,Hum.rec.anlog [Lantus Solostar] 50 unit SQ HS 02/25/15 [History ] Levothyroxine [Synthroid] 88 mcg PO DAILY 02/25/15 [History] Potassium Chloride 10 meq PO TID 02/25/15 [History] Ropinirole [Requip] 6 mg PO HS 02/25/15 [History] Tramadol HCl [Tramadol HCl ER] 100 mg PO Q6H PRN 02/25/15 [History] Calcitriol [Rocaltrol] 0.25 mcg PO DAILY 01/01/16 [History] Losartan Potassium [Cozaar] 100 mg PO DAILY 01/01/16 [History] Sitagliptin Phosphate [Januvia] 50 mg PO DAILY 01/01/16 [History] Gluc/Vicente-MSM#1/Vit C/[place]/Bor [Cvs Vlqocoxossa-Mmdzda-QNB] 1 tab PO HS [History] Insulin ASPART [Novolog Flexpen] 12 unit SQ TIDWM MDD plus sliding scale [History] Metoprolol Succinate 100 mg PO DAILY 12/01/16 [History] Oxygen 2 l .ROUTE HS 12/01/16 [History] Aspirin Enteric Coated [Aspirin EC] 81 mg PO DAILY #30 tablet. 12/03/16 [Rx] Atorvastatin [Lipitor] 40 mg PO HS #30 tablet 12/03/16 [Rx] Furosemide [Lasix] 40 mg PO DAILY #30 tablet 12/03/16 [Rx] Allergies/Adverse Reactions: Allergies Latex Allergy (Uncoded 02/26/15 18:43) See Comments Certification: Further, I certify that my clinical findings support that this patient is homebound (i.e. absences from home require considerable and taxing effort and are for medical reasons or hindu services or infrequently or short duration when for other reasons) because: Homebound Reason: Patient requires assistance of a person or device to safely leave home, Severity of cardiac or pulmonary status limits activity tolerance Attestation: My signature below is to certify that this patient is under my care and that I, or nurse practitioner, or a physician's funeral director's assistant working with me, has a face-to -face encounter with this patient.
[2016-12-03 11:26] VITALS: BP 122/58
--- NOTE | 2016-12-03 16:28 | Venous Imaging Report ---
LE Venous Duplex Patient Name:Cori Adams Order Number:[id number] Procedure Date:12/02/2016 Date:1935ge:81 yrs Gender:Female Location:[facility] Room #: 2A26 Butadiene Convertor Operator:Rufina Cat Referring MD:Carmen Ramos MD motorized squad commanding officer:None Reading MD:Tomas Joseph MD Secondary Indications: Risk Factors Yes/No Hx of DVT Yes Anticoagulants Yes Hx of Chemotherapy No Impressions: Right lower extremity: normal superficial and deep exam. Recommendations: After imaging the patient returned to their room. Findings Venous Duplex Results: Right: Venous imaging of the lower extremity reveals full patency and normal vessel compressibility of the right distal iliac, right common femoral, right superficial femoral, right popliteal, right posterior tibial, right peroneal, right great saphenous and right lesser saphenous. Doppler signals in the evaluated veins were normal. Left: Venous imaging of the lower extremity reveals full patency and normal vessel compressibility of the left common femoral. Doppler signals in the evaluated veins were normal. Lower Extremity Venous Duplex Side Vein Compress Spontaneous Flow Augment Diameter (cm) Depth (cm) Right Distal Iliac Normal Yes Phasic Yes Right Common Femoral Normal Yes Phasic Yes Right Superficial Femoral Normal Yes Phasic Yes Right Popliteal Normal Yes Phasic Yes Right Posterior Tibial Normal Yes Phasic Yes Right Peroneal Normal Yes Phasic Yes Right Great Saphenous Normal Yes Phasic Yes Right Lesser Saphenous Normal Yes Phasic Yes Left Common Femoral Normal Yes Phasic Yes Updated by Tomas Joseph MD on 12/03/2016 4:21:36 PM electronically signed on 12/03/2016 4:22:46 PM with status of Final
== END 2016-12-03 14:15 | disposition home health service (06) | DRG 291 ==
LOC: 2ANU 09:49 → EMEROO 09:49 → SUATTDRO 14:23 → 2ANU 14:28
PROVIDERS: ADMIT Nurse Practitioner Family; ATTEND Internal Medicine

== ENCOUNTER 2018-01-25 14:01 | Inpatient (IN) ==
--- NOTE | 2018-01-25 14:11 | Emergency Department Note ---
Disposition Clinical Impression: DANA (acute kidney injury), Increased oxygen demand Dyspnea Qualifiers: Dyspnea type: unspecified Qualified Code(s): R06.00 - Dyspnea, unspecified CHF exacerbation Qualifiers: Heart failure type: unspecified Qualified Code(s): I50.9 - Heart failure, unspecified Disposition: Admitted As Inpatient Condition: Good Time of Disposition: 18:25 SOB HPI - General Chief Complaint: ED Shortness of Breath/Dyspnea Stated Complaint: LADONNA Time Seen by Provider: 01/25/18 14:09 Source: patient, family Mode of arrival: ambulatory Limitations: no limitations Nursing Notes Reviewed: Yes Vital Signs Reviewed: Yes - History of Present Illness Patient is an 83-year-old female with past medical history of CHF, 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 She presents today due to shortness of breath. She has noted some increased lower extremity swelling over the past few days. She is also noticed increased dyspnea above her baseline. She usually wears 2 L nasal cannula oxygen at home only at night. However, for the past few days, the patient has had to wear her 2 L nasal cannula oxygen 24 hours a day. Denies any overt chest discomfort. She does admit to productive cough, mainly white sputum that is above her baseline. She takes Lasix daily. No recent changes in Lasix dosing. Denies any other fevers, nausea, vomiting, diarrhea, abdominal pain, constipation, dysuria, hematuria. Denies having a [place] filter. - Related Data Home Medications Medication Instructions Recorded Confirmed Apixaban [Eliquis] 2.5 mg PO BID 02/25/15 01/25/18 Insulin Glargine,Hum.rec.anlog 49 unit SQ 02/25/15 01/25/18 [Lantus Solostar] Tramadol HCl [Tramadol HCl ER] 50 mg PO Q6H PRN 02/25/15 01/25/18 Calcitriol [Rocaltrol] 0.25 mcg PO DAILY 01/01/16 01/25/18 Losartan Potassium [Cozaar] 100 mg PO DAILY 01/01/16 01/25/18 Sitagliptin Phosphate [Januvia] 50 mg PO DAILY 01/01/16 01/25/18 Oxygen 2 l .ROUTE 12/01/16 01/25/18 Furosemide [Lasix] 40 mg PO BID 05/03/17 01/25/18 Omeprazole Magnesium [Prilosec Otc] 20 mg PO DAILY 05/03/17 01/25/18 Trazodone HCl 50 mg PO HS PRN 08/18/17 01/25/18 Albuterol Sulfate [Albuterol 2 puff IH Q6H PRN 01/25/18 01/25/18 Inhaler] Gabapentin [Neurontin] 100 mg PO TID 01/25/18 01/25/18 Insulin LISPRO [Humalog] 7 - 13 unit SQ TIDWM 01/25/18 01/25/18 Isosorbide MONOnitrate (24 HR) 30 mg PO DAILY 01/25/18 01/25/18 [Imdur] Levothyroxine [Synthroid] 88 mcg PO 30 01/25/18 01/25/18 Metoprolol Succinate [Toprol Xl] 50 mg PO HS 01/25/18 01/25/18 Potassium Chloride [Klor-Con 10 meq PO TID 01/25/18 01/25/18 Sprinkle] rOPINIRole [Requip] 6 mg PO HS 01/25/18 01/25/18 Previous Rx's Medication Instructions Recorded Clopidogrel [Plavix] 75 mg PO DAILY #30 tablet 05/04/17 Nitroglycerin 0.4 mg SL PRN PRN #30 tab.subl 05/04/17 Docusate [Colace] 100 mg PO BID 10 Days #20 capsule 07/21/17 Anastrozole [Arimidex] 1 mg PO DAILY #30 tablet 09/04/17 Allergies Allergy/AdvReac Type Severity Reaction Status Date / Time antihistamines AdvReac pounding Uncoded 01/25/18 17:51 in head Latex AdvReac Rash - Uncoded 01/25/18 17:51 tested 11--14 negative All systems ED: reviewed and negative except as stated. Constitutional: Denies: fever Cardiovascular: Denies: chest pain Respiratory: Reports: cough, dyspnea, sputum production. Denies: wheezes, hemoptysis Gastrointestinal: Denies: abdominal pain, nausea, vomiting, diarrhea Genitourinary: Denies: urgency, dysuria Integumentary: Denies: rash Neurological: Denies: headache, weakness, numbness, paresthesias Past Medical History - Past Medical History Attestation: Yes The following information was validated with the patient. Source: patient Medical history: Reports: arthritis, atrial fibrillation, CHF, DVT, diabetes, GERD, hyperlipidemia, hypertension, renal disease Surgical history: Reports: appendectomy, hysterectomy Psychiatric history: Reports: no psych history - Social History Smoking Status: Never smoker Smokeless Tobacco Status: No Alcohol use: Reports: none Drug use: Reports: none Physical Exam - General Limitations: no limitations General appearance: alert, in no apparent distress - Head Head exam: atraumatic, normocephalic, normal inspection - Eye Eye exam: Present: normal appearance, PERRL, EOMI - ENT ENT exam: normal exam, normal oropharynx, mucous membranes moist - Neck Neck exam: Present: normal inspection, full ROM, trachea midline - Chest Chest inspection: Present: normal inspection, symmetric chest wall rise - Respiratory Respiratory exam: Present: normal lung sounds bilaterally - Cardiovascular Cardiovascular exam: Present: regular rate, normal rhythm, normal heart sounds - Abdominal Exam Abdominal exam: Present: soft, Non-Tender. Absent: tenderness, distention, guarding, rebound, rigidity - Extremities Exam Extremities exam: Present: normal inspection, full ROM, pedal edema (Bilateral lower extremity pitting edema up to her knees, worse on the right. Right calf tenderness.) - Neurological Exam Neurological exam: Present: alert, oriented X3 - Psychiatric Psychiatric exam: Present: normal affect, normal mood - Skin Skin exam: Present: warm, dry, intact, normal color Course Course Narrative: Patient currently satting only 91% on regular 2 L nasal cannula. She is having some mild increased work of breathing. Basic blood work ordered, labs show DANA , elevated BNP. Chest x-ray shows small left pleural effusion with atelectasis. EKG showed normal sinus rhythm with no acute ST changes. With history of DVT of the right lower extremity, there was concern for PE. However , patient unable to get CTA of the chest due to acute kidney injury. V/Q scan ordered. However, hospital currently out of technetium. I talked with the tech. He stated that he was able to order the contrast and have this ready for the patient to have VQ scan the morning. Blood pressure stable, no signs of any right heart strain on EKG. Comfortable with continuing Eliquis at this time , perform a VQ scan in the morning. Likely CHF exacerbation. Hospitalist has accepted for admission for dyspnea, CHF exacerbation, DANA, increased O2 requirements, concern for possible PE. Chest X-Ray 01/25/18 14:10 IMPRESSION: Small left pleural effusion with adjacent atelectasis. D/ / Joanna Gibson MD / Joanna Gibson MD Interpreting Provider: Joanna Gibson MD Vital Signs Temperature 97.3 F L 01/25/18 14:02 Pulse Rate 94 01/25/18 14:02 Respiratory Rate 24 01/25/18 14:02 Blood Pressure 177/77 01/25/18 14:02 O2 Sat by Pulse Oximetry 91 01/25/18 14:02 Temperature 97.3 F L 01/25/18 14:02 Pulse Rate 83 01/25/18 15:58 Respiratory Rate 15 01/25/18 17:32 Blood Pressure 169/87 01/25/18 17:32 O2 Sat by Pulse Oximetry 94 01/25/18 15:58 Oxygen Delivery Oxygen Delivery Nasal Cannula Shortness of Breath/Dyspnea - MDM Narrative Medical decision making narrative: Patient currently satting only 91% on regular 2 L nasal cannula. She is having some mild increased work of breathing. Basic blood work ordered, labs show DANA , elevated BNP. Chest x-ray shows small left pleural effusion with atelectasis. EKG showed normal sinus rhythm with no acute ST changes. With history of DVT of the right lower extremity, there was concern for PE. However , patient unable to get CTA of the chest due to acute kidney injury. V/Q scan ordered. However, hospital currently out of technetium. I talked with the tech. He stated that he was able to order the contrast and have this ready for the patient to have VQ scan the morning. Blood pressure stable, no signs of any right heart strain on EKG. Comfortable with continuing Eliquis at this time , perform a VQ scan in the morning. Likely CHF exacerbation. Hospitalist has accepted for admission for dyspnea, CHF exacerbation, DANA, increased O2 requirements, concern for possible PE. - Medical Records Medical records reviewed: Yes I reviewed the patient's medical records. - Lab Data Lab results reviewed: Yes I reviewed the patient's lab results. Result diagrams: 01/25/18 14:40 01/25/18 14:40 Lab Results 01/25/18 01/25/18 01/25/18 Range/Units 14:40 14:40 14:40 WBC 9.4 (4.3-11.1) K/mcL RBC 4.76 (3.82-4.97) M/mcL Hgb 12.2 (11.5-15.4) g/dL Hct 38.9 (35.3-44.9) % MCV 81.7 L (83.0-100.0) fL MCH 25.6 L (28.0-33.3) pg MCHC 31.4 L (31.6-35.5) g/dL RDW 16.9 H (11.5-14.5) % Plt Count 324 (140-400) K/mcL MPV 9.8 (9.4-12.4) fL Immature Gran % 0.6 (0-4) % Seg Neutrophils % 65.2 % Lymphocytes % 23.9 % Monocytes % 6.8 % Eosinophils % 2.6 % Basophils % 0.9 % Neutrophils # 6.1 (1.6-8.9) K/mcL Lymphocytes # 2.2 (0.6-4.6) K/mcL Monocytes # 0.6 (0.0-1.3) K/mcL Eosinophils # 0.2 (0.0-0.6) K/mcL Basophils # 0.1 (0.0-0.2) K/mcL Sodium 138 (136-145) mEq/L Potassium 3.8 (3.5-5.1) mEq/L Chloride 101 (98-107) mEq/L Carbon Dioxide 28 (23-29) mEq/L BUN 26 H (8-23) mg/dL Creatinine 1.50 H (0.60-1.20) mg/dL Est GFR ( Amer) 40 L (> 60) Est GFR (Non-Af Amer) 33 L (> 60) BUN/Creatinine Ratio 17 (6-26) Glucose 142 H (70-105) mg/dL Calculated Osmolality 293 (280-300) Calcium 10.2 (8.6-10.3) mg/dL Troponin I 0.03 (< 0.04) ng/mL B-Natriuretic Peptide 826 H (Less than 100) pg/mL - Radiology Data Radiology results reviewed: Yes I reviewed the patient's radiology results. Chest X-Ray 01/25/18 14:10 IMPRESSION: Small left pleural effusion with adjacent atelectasis. D/ / Joanna Gibson MD / Joanna Gibson MD Interpreting Provider: Joanna Gibson MD - EKG Data EKG attestation: Yes I reviewed and interpreted this EKG. EKG results narrative: 01/25/2018 at 14:19. Normal sinus rhythm. Rate 89. SC 220. QRS 108. QTC 427. Left axis deviation. No acute ST elevation or depression. S.B.A.R. - S.B.A.R. Situation: Demographics, MOA Background: Presenting Complaint, Relevant PMH, Meds, & Allergies Assessment: Vital Signs, Course and respsone to treatment, Exam Concerns, Patient/Family Expectation, Pertinant Lab Results, Outstanding Labs Recommendation: Barrier(s) to disposition, Recommendation based on pending studies, treatments, or consults S.B.A.R. Report Given to: Dr Cuevas, discussed pending VQ scan
[2018-01-25 14:59] LABS: Basophils # 0.1 K/mcL (0.0-0.2); Basophils % 0.9 %; Eosinophils # 0.2 K/mcL (0.0-0.6); Eosinophils % 2.6 %; Hematocrit 38.9 % (35.3-44.9); Hemoglobin 12.2 g/dL (11.5-15.4); Immature Granulocytes % 0.6 % (0-4); Lymphocytes # 2.2 K/mcL (0.6-4.6); Lymphocytes % 23.9 %; Mean Corpuscular HGB Conc 31.4 g/dL (31.6-35.5); Mean Corpuscular Hemoglobin 25.6 pg (28.0-33.3); Mean Corpuscular Volume 81.7 fL (83.0-100.0); Mean Platelet Volume 9.8 fL (9.4-12.4); Monocytes # 0.6 K/mcL (0.0-1.3); Monocytes % 6.8 %; Neutrophils # 6.1 K/mcL (1.6-8.9); Platelet Count 324 K/mcL (140-400); Red Blood Count 4.76 M/mcL (3.82-4.97); Red Cell Distribution Width 16.9 % (11.5-14.5); Segmented Neutrophils % 65.2 %
[2018-01-25] MEDS ORDERED: Isovue-370 500 ML INFUS..BTL IV ONE (14:59)
[2018-01-25 15:16] LABS: Calcium 10.2 mg/dL (8.6-10.3); Potassium 3.8 mEq/L (3.5-5.1); Troponin I 0.03 ng/mL (< 0.04)
--- NOTE | 2018-01-25 15:32 | Emergency Department Note ---
Disposition Clinical Impression: DANA (acute kidney injury), Increased oxygen demand Dyspnea Qualifiers: Dyspnea type: unspecified Qualified Code(s): R06.00 - Dyspnea, unspecified CHF exacerbation Qualifiers: Heart failure type: unspecified Qualified Code(s): I50.9 - Heart failure, unspecified Disposition: Admitted As Inpatient Condition: Good General Adult HPI - General Chief complaint: ED Shortness of Breath/Dyspnea Stated complaint: LADONNA Time Seen by Provider: 01/25/18 14:09 Source: patient, family Limitations: no limitations - History of Present Illness Pain Scale: 0 - Related Data Home Medications Medication Instructions Recorded Confirmed Apixaban [Eliquis] 2.5 mg PO BID 02/25/15 01/25/18 Insulin Glargine,Hum.rec.anlog 49 unit SQ 02/25/15 01/25/18 [Lantus Solostar] Tramadol HCl [Tramadol HCl ER] 50 mg PO Q6H PRN 02/25/15 01/25/18 Calcitriol [Rocaltrol] 0.25 mcg PO DAILY 01/01/16 01/25/18 Losartan Potassium [Cozaar] 100 mg PO DAILY 01/01/16 01/25/18 Sitagliptin Phosphate [Januvia] 50 mg PO DAILY 01/01/16 01/25/18 Oxygen 2 l .ROUTE 12/01/16 01/25/18 Furosemide [Lasix] 40 mg PO BID 05/03/17 01/25/18 Omeprazole Magnesium [Prilosec Otc] 20 mg PO DAILY 05/03/17 01/25/18 Trazodone HCl 50 mg PO PRN 08/18/17 01/25/18 Albuterol Sulfate [Albuterol 2 puff IH Q6H PRN 01/25/18 01/25/18 Inhaler] Gabapentin [Neurontin] 100 mg PO TID 01/25/18 01/25/18 Insulin LISPRO [Humalog] 7 - 13 unit SQ TIDWM 01/25/18 01/25/18 Isosorbide MONOnitrate (24 HR) 30 mg PO DAILY 01/25/18 01/25/18 [Imdur] Levothyroxine [Synthroid] 88 mcg PO 0630 01/25/18 01/25/18 Metoprolol Succinate [Toprol Xl] 50 mg PO 01/25/18 01/25/18 Potassium Chloride [Klor-Con 10 meq PO TID 01/25/18 01/25/18 Sprinkle] rOPINIRole [Requip] 6 mg PO HS 01/25/18 01/25/18 Previous Rx's Medication Instructions Recorded Clopidogrel [Plavix] 75 mg PO DAILY #30 tablet 05/04/17 Nitroglycerin 0.4 mg SL PRN PRN #30 tab.subl 05/04/17 Docusate [Colace] 100 mg PO BID 10 Days #20 capsule 07/21/17 Anastrozole [Arimidex] 1 mg PO DAILY #30 tablet 09/04/17 Allergies Allergy/AdvReac Type Severity Reaction Status Date / Time antihistamines AdvReac pounding Uncoded 01/25/18 17:51 in head Latex AdvReac Rash - Uncoded 01/25/18 17:51 tested 05-05-14 negative Past Medical History - Past Medical History Medical history: Reports: arthritis, atrial fibrillation, CHF, DVT, diabetes, GERD, hyperlipidemia, hypertension, renal disease Surgical history: Reports: appendectomy, hysterectomy Psychiatric history: Reports: no psych history - Social History Smoking Status: Never smoker Smokeless Tobacco Status: No Alcohol use: Reports: none Drug use: Reports: none Physical Exam - General Limitations: no limitations General appearance: alert, in no apparent distress Course Vital Signs Temperature 97.3 F L 01/25/18 14:02 Pulse Rate 94 01/25/18 14:02 Respiratory Rate 24 01/25/18 14:02 Blood Pressure 177/77 01/25/18 14:02 O2 Sat by Pulse Oximetry 91 01/25/18 14:02 Temperature 97.3 F L 01/25/18 14:02 Pulse Rate 83 01/25/18 15:58 Respiratory Rate 15 01/25/18 17:32 Blood Pressure 169/87 01/25/18 17:32 O2 Sat by Pulse Oximetry 94 01/25/18 15:58 Oxygen Delivery Oxygen Delivery Nasal Cannula Medical Decision Making - Lab Data Result diagrams: 01/25/18 14:40 01/25/18 14:40 Lab Results 01/25/18 01/25/18 01/25/18 Range/Units 14:40 14:40 14:40 WBC 9.4 (4.3-11.1) K/mcL RBC 4.76 (3.82-4.97) M/mcL Hgb 12.2 (11.5-15.4) g/dL Hct 38.9 (35.3-44.9) % MCV 81.7 L (83.0-100.0) fL MCH 25.6 L (28.0-33.3) pg MCHC 31.4 L (31.6-35.5) g/dL RDW 16.9 H (11.5-14.5) % Plt Count 324 (140-400) K/mcL MPV 9.8 (9.4-12.4) fL Immature Gran % 0.6 (0-4) % Seg Neutrophils % 65.2 % Lymphocytes % 23.9 % Monocytes % 6.8 % Eosinophils % 2.6 % Basophils % 0.9 % Neutrophils # 6.1 (1.6-8.9) K/mcL Lymphocytes # 2.2 (0.6-4.6) K/mcL Monocytes # 0.6 (0.0-1.3) K/mcL Eosinophils # 0.2 (0.0-0.6) K/mcL Basophils # 0.1 (0.0-0.2) K/mcL Sodium 138 (136-145) mEq/L Potassium 3.8 (3.5-5.1) mEq/L Chloride 101 (98-107) mEq/L Carbon Dioxide 28 (23-29) mEq/L BUN 26 H (8-23) mg/dL Creatinine 1.50 H (0.60-1.20) mg/dL Est GFR ( Amer) 40 L (> 60) Est GFR (Non-Af Amer) 33 L (> 60) BUN/Creatinine Ratio 17 (6-26) Glucose 142 H (70-105) mg/dL Calculated Osmolality 293 (280-300) Calcium 10.2 (8.6-10.3) mg/dL Troponin I 0.03 (< 0.04) ng/mL B-Natriuretic Peptide 826 H (Less than 100) pg/mL Attestation Statement - Attestation Attestation: I examined this patient and my medical decision-making was reviewed with the [employer] ATTENDANT/PA/Advanced Practice Nurse/Resident Physician. I agree with the documented findings, disposition and treatment plan as described except to the extent set forth below. I did see the patient spoke with her and examined her as well as speaking with the patient's daughter and [id number] and the patient does have shortness of breath, was hypoxemic at the home with a saturation of 88%. Normally she wears oxygen at night. On my exam her lungs are clear. The patient did have a EKG showing normal sinus rhythm with a rate of 89 and with some nonspecific ST changes which were not present on a previous EKG from May 2017 and the patient does have a CTA of the chest pending looking for pulmonary embolism as she has had several deep vein thromboses of the lower extremities in the past. She is on our request. Results pending. She is bright and alert and speaking normally. Color is currently good. [id number]
--- NOTE | 2018-01-25 18:03 | Internal Med History&Physical ---
Date of Encounter: 01/25/18 Time of Encounter: 19:00 Internal Medicine - H&P: HPI Chief complaint: shortness of breath Admitted From: Home Plans for Post Hospital Care: Home History of present illness: Ms. 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 As per patient and family at bedside she has been having increasing shortness of breath for the past 3 weeks. Shortness of breath worsens on ambulation and alleviates at rest She denies any chest pain associated with shortness of breath but does report bilateral leg swelling. In addition to bilateral leg swelling she complains of redness of the right lower extremity and pain in her calf area. As per daughter at bedside who lives with patient she was prescribed 2 L nasal cannula by her PCP to use at nighttime. She reports that patient was prescribed the 2 L nasal cannula for muscle weakness. Denies ever being diagnosed with any lung problems. She is a nonsmoker, denies history of COPD or asthma. Daughter reports that she is compliant with all her medications she is taking her Lasix once a day. Denies any recent changes to her medications. She has never had symptoms like this before so daughter checked her oxygen saturation at home which was in the low 80s so they decided to bring her to the ED for further management. While in the ED she was found to be desaturating on room air so she was placed on 2 L nasal cannula. She was endorsed for further management of CHF and possible pulmonary embolism. she denies sick contatcs, recet travel, fever, chills, cough, hemoptysis, chest pain, palpitations, N/V/D, dysuria, Syncope. she also complains of pND and orthopnea for the past few days. Past Med Surg Social Fam HX - Past Medical History Medical history: arthritis, atrial fibrillation, CHF, DVT, diabetes, GERD, hyperlipidemia, hypertension, renal disease Additional medical history: HYPOTHYROIDISM,NEUROPATHY, BARRETTS ESOPHAGUS, KIDNEY DISEASE, Psychiatric history: no psych history - Past Surgical History Surgical History: appendectomy, hysterectomy Additional surgical history: Right breast Lumpectomy - Social History Smoking Status: Never smoker Smokeless Tobacco Status: No Alcohol use: none Drug use: none - Family History Mother Living Status: Father Living Status: Hx Family Cancer: Yes Internal Medicine - H&P: Meds Apixaban [Eliquis] 2.5 mg PO BID 02/25/15 [History] Insulin Glargine,Hum.rec.anlog [Lantus Solostar] 49 unit SQ HS 02/25/15 [History ] Tramadol HCl [Tramadol HCl ER] 50 mg PO Q6H PRN 02/25/15 [History] Calcitriol [Rocaltrol] 0.25 mcg PO DAILY 01/01/16 [History] Losartan Potassium [Cozaar] 100 mg PO DAILY 01/01/16 [History] Sitagliptin Phosphate [Januvia] 50 mg PO DAILY 01/01/16 [History] Oxygen 2 l .ROUTE HS 12/01/16 [History] Furosemide [Lasix] 40 mg PO BID 05/03/17 [History] Omeprazole Magnesium [Prilosec Otc] 20 mg PO DAILY 05/03/17 [History] Clopidogrel [Plavix] 75 mg PO DAILY #30 tablet 05/04/17 [Rx] Nitroglycerin 0.4 mg SL PRN PRN #30 tab.subl 05/04/17 [Rx] Docusate [Colace] 100 mg PO BID 10 Days #20 capsule 07/21/17 [Rx] Trazodone HCl 50 mg PO HS PRN 08/18/17 [History] Anastrozole [Arimidex] 1 mg PO DAILY #30 tablet 09/04/17 [Rx] Albuterol Sulfate [Albuterol Inhaler] 2 puff IH Q6H PRN 01/25/18 [History] Gabapentin [Neurontin] 100 mg PO TID 01/25/18 [History] Insulin LISPRO [Humalog] 7 - 13 unit SQ TIDWM 01/25/18 [History] Isosorbide MONOnitrate (24 HR) [Imdur] 30 mg PO DAILY 01/25/18 [History] Levothyroxine [Synthroid] 88 mcg PO 0630 01/25/18 [History] Metoprolol Succinate [Toprol Xl] 50 mg PO HS 01/25/18 [History] Potassium Chloride [Klor-Con Sprinkle] 10 meq PO TID 01/25/18 [History] rOPINIRole [Requip] 6 mg PO HS 01/25/18 [History] 3 Allergy/AdvReac Type Severity Reaction Status Date / Time antihistamines AdvReac pounding Uncoded 01/25/18 17:51 in head Latex AdvReac Rash - Uncoded 01/25/18 17:51 tested 11-3-14 negative All Systems PM: review of systems was performed and is negative for pertinent findings except as documented above in the HPI. - Constitutional Vitals: Temp Pulse Resp BP Pulse Ox 97.3 F L 83 15 169/87 94 01/25/18 14:02 01/25/18 15:58 01/25/18 17:32 01/25/18 17:32 01/25/18 15:58 - Other Additional findings: General: Patient is alert, oriented, no acute distress, over weight, speaks in full sentences. Head: atraumatic, normocephalic, has herpes zoster scars on the forehead - healing Eye: normal appearance, PERRL, no scleral icterus, no conjunctival injection ENT: mucous membranes moist, normal external ear exam Neck: normal inspection, trachea midline, full ROM, no carotid bruits Chest: normal inspection, symmetric chest rise Respiratory: Good respiratory effort. Bilateral breath sounds are clear without wheezing, crackles, or rhonchi. Cardiovascular: Regular rate and rhythm. s1 and s2 No clicks, rubs, gallops, or murmors. Abdomen: Bowel sounds present normoactive x-4 quadrants. Abdomen is soft, nondistended. Epigastric tenderness. No guarding or rebound. No organomegaly noted, obese musculoskeletal: Spontaneously moving all extremities. bilateral edema of the lower extremities R>L, erythema of the right lower extremity up to knee, ve calf tenderness of bilateral lower extremities Skin: warm, dry, intact. Neuro: Alert and oriented x4. Sensation light touch intact. Cranial nerves 2- 12 is intact. Not aphasic, Psych: Patient's affect is normal Internal Med - H&P Results - Labs CBC & Chem 7: 01/25/18 14:40 01/25/18 14:40 - EKG Data -: EKG Interpreted by Myself (sinus rhythm, LVH with St-t changes , ? Q waves in anterior leads, QT 472) - EKG Data Prior EKG available for review: yes - Assessment and plan (1) Acute respiratory failure with hypoxia Current Visit: Yes Status: Acute Assessment and plan: wells criteria for PE 8.5 points V/Q scan ordered will start her on heparin drip at 9 pm ( was on eliquis, next dose at 9pm) - moonitor for bleeding ( risks discussed with family and patient) patient currently refusing doppler of lower extremities - has multiple histories of DVT on eliquis spoke to plate printer and discussed the above plan - he agrees ABG stat oxygen via Nasal cannula keep sats>92% (2) Acute on chronic congestive heart failure Current Visit: Yes Status: Acute Assessment and plan: TTE done in august 2017- LVEF 40-45%. * Borderline increased LV wall thickness. * Diastolic dysfunction with elevated filling pressures. BNP is elevated will start her IV lasix 40 mg Qday for diuresis strict intake and out put daily weights fluid restriction <1L consider TTE in the AM CArdiology consult in the AM will repeat CXR in the AM will continue home medications- hold ARB - as she has DANA Qualifiers: Heart failure type: combined systolic and diastolic Qualified Code(s): I50.43 - Acute on chronic combined systolic (congestive) and diastolic ( congestive) heart failure (3) Acute kidney injury superimposed on chronic kidney disease Current Visit: No Status: Chronic Assessment and plan: will continue to monitor BMP and electrolytes strict intake and out put UA STAT ca be due to acute on chronic CHF - will gently diurese her with lasix 40 mg IV Qday hold CARRILLO/ARB since she has DANA. 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 Qualifiers: Diabetes mellitus long term care pharmacist insulin use: with long term care pharmacist use Diabetes mellitus complication status: with kidney complications Diabetes mellitus complication detail: with chronic kidney disease Chronic kidney disease stage : stage 3 (moderate) Qualified Code(s): E11.22 - Type 2 diabetes mellitus with diabetic chronic kidney disease; N18.3 - Chronic kidney disease, stage 3 ( moderate); Z79.4 - shelter (current) use of insulin (7) Breast cancer Current Visit: No Status: Acute Assessment and plan: has history of breast cancer s/p partial mastectomy early 2017 continue anastrozole Qualifiers: Breast location: unspecified site of breast Estrogen receptor status: unspecified Patient sex: female Laterality: right Qualified Code(s): C50.911 - Malignant neoplasm of unspecified site of right female breast (8) Hypothyroidism Current Visit: No Status: Chronic Assessment and plan: continue synthroid Qualifiers: Hypothyroidism type: acquired Qualified Code(s): E03.9 - Hypothyroidism, unspecified (9) DVT prophylaxis Current Visit: No Status: Acute Assessment and plan: on heparin drip currently for chronic DVTs and PE - Time Spent With Patient Total time spent is greater than 50% in coordination of care (as documented) at patient's floor/unit and/or counseling patient:
[2018-01-25] MEDS ORDERED: Nitroglycerin 0.4 MG TAB.SUBL SL PRN ×2 (18:17→18:27)
[2018-01-25] MEDS ORDERED: D5% in Water 1,000 ML IVC PRN (18:27)
[2018-01-25] MEDS ORDERED: *HR* Dextrose 50 % in Water (Syg) 50 ML SYRINGE IVP PRN (18:27)
[2018-01-25] MEDS ORDERED: Dextrose Gel 15 GM/37.5 ML TUBE PO PRN ×2 (18:27)
[2018-01-25 19:17] LABS: ABG Base Excess 7 mEq/L (-2 to 3); ABG HCO3 30 mEq/L (21-27); ABG Oxygen Saturation 97 % (95-98); ABG PCO2 33 mmHg (35-45); ABG PH 7.56 pH Units (7.32-7.45); ABG PO2 80 mmHg (85-104); ABG TCO2 31 mEq/L (20-26)
[2018-01-25] MEDS: Furosemide 40 MG/4 ML VIAL IVP SCH (19:59)
[2018-01-25] MEDS: Metoprolol XL (24 HR) Succ 50 MG TAB.ER.24H PO SCH (20:00)
[2018-01-25 20:10] LABS: INR 1.3; Prothrombin Time 14.1 Seconds (9.4-12.1)
[2018-01-25 20:13] LABS: Activated Partial Thrombo Time 29.1 Seconds (26.0-36.0)
[2018-01-25 20:27] LABS: Magnesium 1.9 mg/dL (1.6-2.6); Phosphorous 3.4 mg/dL (2.7-4.5)
[2018-01-25] MEDS ORDERED: *HR* Heparin 5,000 UNIT/ML VIAL IVP ONE (21:00)
[2018-01-25] MEDS ORDERED: *HR* Heparin 5,000 UNIT/ML VIAL IVP PRN ×2 (21:00)
[2018-01-25] MEDS ORDERED: Heparin 25,000 UNIT/500 ML D5W 25,000 UNIT/500 ML BAG IVC SCH (21:00)
[2018-01-25 21:01] LABS: Bilirubin,Urine Negative (Negative); Blood,Urine Negative (Negative); Clarity,Urine Clear (Clear); Color,Urine Yellow (Yellow); Glucose,Urine (UA) Normal (Normal); Ketones,Urine Negative (Negative); Leukocyte Esterase,Urine Negative (Negative); Nitrite,Urine Negative (Negative); Protein,Urine Negative (Neg-Trace); Specific Gravity,Urine 1.008 (1.010-1.025); Urobilinogen,Urine Normal (Normal)
[2018-01-25 21:29] LABS: Heparin anti-factor XA UFH 0.57 IU/mL (0.30-0.70); INR 1.2; Prothrombin Time 13.9 Seconds (9.4-12.1)
[2018-01-25] MEDS: Insulin DETEMIR 100 UNIT/ML X5UNITS SQ SCH (22:23)
[2018-01-25] MEDS: Insulin LISPRO 300 UNITS/3 ML VIAL SQ SCH (22:45)
[2018-01-26 05:16] LABS: Basophils # 0.1 K/mcL (0.0-0.2); Basophils % 0.6 %; Eosinophils # 0.2 K/mcL (0.0-0.6); Eosinophils % 1.9 %; Hematocrit 35.1 % (35.3-44.9); Immature Granulocytes % 0.5 % (0-4); Lymphocytes # 1.9 K/mcL (0.6-4.6); Lymphocytes % 19.4 %; Mean Corpuscular HGB Conc 31.3 g/dL (31.6-35.5); Mean Corpuscular Hemoglobin 25.5 pg (28.0-33.3); Mean Corpuscular Volume 81.4 fL (83.0-100.0); Mean Platelet Volume 9.8 fL (9.4-12.4); Monocytes # 0.6 K/mcL (0.0-1.3); Monocytes % 6.2 %; Neutrophils # 6.9 K/mcL (1.6-8.9); Platelet Count 297 K/mcL (140-400); Red Blood Count 4.31 M/mcL (3.82-4.97); Red Cell Distribution Width 16.9 % (11.5-14.5); Segmented Neutrophils % 71.4 %
[2018-01-26 05:31] LABS: Calcium 9.7 mg/dL (8.6-10.3); Chol/HDL Ratio 3.4 (0-4.9); Potassium 3.1 mEq/L (3.5-5.1)
[2018-01-26 06:41] LABS: Estimated Average Glucose 174 mg/dl; Hemoglobin A1C 7.7 %
[2018-01-26] MEDS: Insulin LISPRO 300 UNITS/3 ML VIAL SQ SCH ×4 (07:54→21:38)
[2018-01-26] MEDS ORDERED: NON-FORMULARY MEDICATION 1 EACH EACH (Insulin Lispro [Humalog] 0 UNIT) SQ SCH (08:00)
--- NOTE | 2018-01-26 10:43 | Cardiology Consult Note ---
<LeeSherley J - Last Filed: 01/26/18 10:37> Date of Encounter: 01/26/18 Time of Encounter: 09:30 Assessment and Plan (1) Acute respiratory failure with hypoxia Current Visit: Yes Status: Acute Per cardiology: -Admitted with acute respiratory failure with SpO2 80%. -VQ scan with intermediate probability for PE. TTE with normal RV structure and function. -On heparin drip. -In outpatient setting, on eliquis 2.5mg BID for history of DVT. -Management per primary service. (2) Acute on chronic congestive heart failure Current Visit: Yes Status: Acute Per cardiology: -Acute on chronic CHF. BNP 826 on admission. -Chest x-ray with small left pleural effusion, mild pulmonary vascular congestion without edema. -TTE this admission with LVEF 35%, global, moderate diastolic dysfunction, normal RV structure and function, moderate MR. -OF note LVEF 45-50% on echo June 2015 with moderate diastolic dysfunction, echo December 2016 EF 25-30%, and repeat echo EF 30-35%. August 2017 showing EF improved to 40-45% -Was given IV lasix -Currently net negative 1L. -Weight has decreased almost 1kg since admission. -Euvolemic on exam. -On BB, was on ARB in outpatient setting, was held due to mild DANA. -Will switch lasix to po. -Strict i/os, fluid restriction, daily weights. -Will resume ARB since renal function has normalized. -Can conside MUGA in outpatient setting for evalutaion for possible ICD placement. -Anticipate cardiology sign off once seen and evaluated by . Qualifiers: Heart failure type: combined systolic and diastolic Qualified Code(s): I50.43 - Acute on chronic combined systolic (congestive) and diastolic ( congestive) heart failure (3) CAD (coronary artery disease) Current Visit: No Status: Chronic Per cardiology: -Known CAD s/p [facility] 05/2017 70% proximal LAD with JANETH, 50% mid LAD. -On plavix, BB, imdur. Not on statin due to intolerance. Of note, not on asa due to need for eliquis for history of DVT. -Denies chest pain. -ECG with SR, HR 89, non-specific ST and T wave abnormalities noted. -Troponin negative. Qualifiers: Coronary Disease-Associated Artery/Lesion type: [place] artery [place] vs. transplanted heart: [place] heart Associated angina: without angina Qualified Code(s): I25.10 - Atherosclerotic heart disease of [place] coronary artery without angina pectoris Discussion w patient/family: The assessment and plan as outlined above was discussed with the patient who expressed understanding and agreement. All questions were answered. Thank you for involving us in the care of your patient. Please call with any questions. Discussed and reviewed with . History of Present Illness Consult date: 01/25/18 Requesting physician: Laney Ball Consult reason: acute on chronic CHF Chief complaint: shortness of breath History of present illness: Ms. Adams is a 83 year old female with a relevant past medical history of HLD, HTN, hypothyroidism, GERD, DM, renal insufficiency, neuropathy, DVT, breast cancer, factor V, CAD s/p PCI, cardiomyopathy who presented to [facility] with complaints of increased shortness of breath. Patient states she was having to wear oxygen at all times at home, when she normally only wears at night. Patient also reported lower extremity edema on admission, states resolved now. Patient denies chest pain. Past Med Surg Social Fam HX - Past Medical History Attestation: Yes The following information was validated with the patient. Source: patient, old records reviewed Medical history: arthritis, atrial fibrillation, cardiomyopathy, CHF, coronary artery disease, DVT, diabetes, GERD, hyperlipidemia, hypertension, renal disease Additional medical history: HYPOTHYROIDISM,NEUROPATHY, BARRETTS ESOPHAGUS, KIDNEY DISEASE, Psychiatric history: no psych history - Past Surgical History Surgical History: appendectomy, hysterectomy Additional surgical history: Right breast Lumpectomy - Social History Smoking Status: Never smoker Smokeless Tobacco Status: No Alcohol use: none Drug use: none - Family History Mother Living Status: Father Living Status: Hx Family Cancer: Yes Medications and Allergies Apixaban [Eliquis] 2.5 mg PO BID 02/25/15 [History] Insulin Glargine,Hum.rec.anlog [Lantus Solostar] 49 unit SQ HS 02/25/15 [History ] Tramadol HCl [Tramadol HCl ER] 50 mg PO Q6H PRN 02/25/15 [History] Calcitriol [Rocaltrol] 0.25 mcg PO DAILY 01/01/16 [History] Losartan Potassium [Cozaar] 100 mg PO DAILY 01/01/16 [History] Sitagliptin Phosphate [Januvia] 50 mg PO DAILY 01/01/16 [History] Oxygen 2 l .ROUTE HS 12/01/16 [History] Furosemide [Lasix] 40 mg PO BID 05/03/17 [History] Omeprazole Magnesium [Prilosec Otc] 20 mg PO DAILY 05/03/17 [History] Clopidogrel [Plavix] 75 mg PO DAILY #30 tablet 05/04/17 [Rx] Nitroglycerin 0.4 mg SL PRN PRN #30 tab.subl 05/04/17 [Rx] Docusate [Colace] 100 mg PO BID 10 Days #20 capsule 07/21/17 [Rx] Trazodone HCl 50 mg PO HS PRN 08/18/17 [History] Anastrozole [Arimidex] 1 mg PO DAILY #30 tablet 09/04/17 [Rx] Albuterol Sulfate [Albuterol Inhaler] 2 puff IH Q6H PRN 01/25/18 [History] Gabapentin [Neurontin] 100 mg PO TID 01/25/18 [History] Insulin LISPRO [Humalog] 7 - 13 unit SQ TIDWM 01/25/18 [History] Isosorbide MONOnitrate (24 HR) [Imdur] 30 mg PO DAILY 01/25/18 [History] Levothyroxine [Synthroid] 88 mcg PO 30 01/25/18 [History] Metoprolol Succinate [Toprol Xl] 50 mg PO HS 01/25/18 [History] Potassium Chloride [Klor-Con Sprinkle] 10 meq PO TID 01/25/18 [History] rOPINIRole [Requip] 6 mg PO HS 01/25/18 [History] 3 Allergy/AdvReac Type Severity Reaction Status Date / Time antihistamines AdvReac pounding Uncoded 01/25/18 17:51 in head Latex AdvReac Rash - Uncoded 01/25/18 17:51 tested 11-3-14 negative All Systems Review: The remainder of the systems were reviewed and are negative - Cardiovascular Cardiovascular: as per HPI, dyspnea at rest, dyspnea on exertion Physical Examination Vital Signs, Last 4 Hours Temp Pulse Resp BP Pulse Ox 01/26/18 07:20 97.7 F 73 18 159/75 93 General: Conversant, No Apparent Distress HEENT: Atraumatic, Normocephaly, Mucus Membranes Moist Neck: No JVD, Normal carotid pulses Cardiac: Reg Rate and Rhythm, Normal S1 and S2, No Murmur Lungs: Normal Breath Sounds, No Wheeze, Rales, Rhonchi Neuro: Alert and responsive, No focal deficits noted Abdomen: Soft, Non-Tender Skin: No rashes noted on visualized skin Musculoskeletal: No Chest Wall Tenderness Extremities: No Clubbing, No Cyanosis, No Edema, Normal Pulses Results 01/26/18 04:28 01/26/18 04:28 Lab Results Impressions Chest X-Ray 01/25/18 14:10 IMPRESSION: Small left pleural effusion with adjacent atelectasis. D/ / Joanna Gibson MD / Joanna Gibson MD Interpreting Provider: Joanna Gibson MD Pulmonary Perfusion Imaging 01/25/18 15:41 IMPRESSION: Left basilar triple match is technically intermediate probability for pulmonary embolism. D/ / Aureliano Lima MD / Aureliano Lima MD Interpreting Provider: Aureliano Lima MD Echocardiogram 01/25/18 18:22 Impressions: LVEF 35%. Moderately dilated left ventricle. Global left ventricular systolic dysfunction. Moderate left ventricular diastolic dysfunction. Atypical septal motion consistent with bundle branch block. Normal right ventricular structure and function. Moderate mitral regurgitation. No evidence of pulmonary hypertension. Left Ventricular Wall Motion: Rest Echo Findings All wall segments showed normal motion. Findings: Study Quality * Technically adequate exam. ECG Findings * Sinus rhythm with BBB. Left Ventricle * LVEF 35%. * Moderately dilated left ventricle. * Global left ventricular systolic dysfunction. * Moderate left ventricular diastolic dysfunction. * Atypical septal motion consistent with bundle branch block. Right Ventricle * Normal right ventricular structure and function. Left Atrium * Moderately dilated left atrium. Right Atrium * Mildly dilated right atrium. Aortic Valve * Aortic valve not well visualized. * No aortic regurgitation. * No aortic stenosis. Mitral Valve * Mildly calcified mitral valve leaflets. * Mild mitral annular calcification * Moderate mitral regurgitation. * No mitral stenosis. Tricuspid Valve * Normal tricuspid valve structure and function. * Trace tricuspid regurgitation. * No evidence of pulmonary hypertension. Pulmonic Valve * Normal pulmonic valve structure and function. * No pulmonic regurgitation. Aorta * Normally sized aortic root. Pericardium * The pericardium appears normal. IVC * Normal IVC dimensions and inspiratory collapse. Pulmonary Artery * Normal visualized portions of the main pulmonary artery. Chest X-Ray 01/26/18 04:00 IMPRESSION: Slight interval improvement of left pleural effusion and left basilar atelectasis. Mild interstitial edema. D/ / Joanna Gibson MD / Joanna Gibson MD Interpreting Provider: Joanna Gibson MD Active Medications Albuterol Sulfate (Albuterol Inhaler) 2 puff IH Q6H PRN PRN Reason: Shortness Of Breath Stop: 07/27/18 18:18 Anastrozole (Arimidex) 1 mg PO DAILY [facility] Stop: 07/28/18 09:01 Calcitriol (Rocaltrol) 0.25 mcg PO DAILY [facility] Stop: 07/28/18 09:01 Clopidogrel Bisulfate (Plavix) 75 mg PO DAILY [facility] Stop: 07/28/18 09:01 Dextrose/Water (Dextrose 50% (Syg)) 25 ml IVP AD PRN PRN Reason: Hypoglycemia Stop: 07/27/18 18:28 Docusate Sodium (Colace) 100 mg PO BID [facility] PRN Reason: Protocol Stop: 07/27/18 21:01 Last Admin: 01/25/18 20:00 Dose: 100 mg Furosemide (Lasix) 40 mg IVP DAILY [facility] Stop: 07/27/18 18:46 Last Admin: 01/25/18 19:59 Dose: 40 mg Glucagon (Glucagen) 1 mg IM ONCE PRN PRN Reason: Hypoglycemia Stop: 07/27/18 18:28 Glucose (Gluctose) 15 gm PO ONCE PRN PRN Reason: Hypoglycemia Stop: 07/27/18 18:28 Glucose (Gluctose) 30 gm PO ONCE PRN PRN Reason: Hypoglycemia Stop: 07/27/18 18:28 Heparin Sodium (Porcine) (Heparin) 5,200 unit 70 unit/kg (5200 unit) IVP Q6HR PRN PRN Reason: SEE COMMENTS Stop: 07/27/18 21:01 Heparin Sodium (Porcine) (Heparin) 2,600 unit 35 unit/kg (2600 unit) IVP Q6H PRN PRN Reason: SEE COMMENTS Stop: 07/27/18 21:01 Dextrose (Dextrose 5%) 1,000 mls @ 100 mls/hr IVC .Q10H PRN PRN Reason: HYPOGLYCEMIA Stop: 07/27/18 18:28 Heparin Sodium/Dextrose (Heparin 25,000 Unit/500 Ml D5w) 25,000 unit in 500 mls @ 20.702 mls/hr IVC .Q24H SALMA; 14 UNIT/KG/HR PRN Reason: Protocol Stop: 07/27/18 21:01 Last Titration: 01/26/18 05:29 Dose: 11 unit/kg/hr, 16.266 mls/hr Insulin Detemir (Levemir) 49 unit SQ [facility] Stop: 07/27/18 21:01 Last Admin: 01/25/18 22:23 Dose: 49 unit Insulin Human Lispro (Humalog) 0 units SQ HS [facility] PRN Reason: Protocol Stop: 07/27/18 21:01 Last Admin: 01/25/18 22:45 Dose: Not Given Insulin Human Lispro (Humalog) 0 units SQ TIDAC [facility] PRN Reason: Protocol Stop: 07/28/18 07:31 Last Admin: 01/26/18 07:54 Dose: Not Given Isosorbide Mononitrate (Imdur) 30 mg PO DAILY [facility] Stop: 07/28/18 09:01 Levothyroxine Sodium (Synthroid) 88 mcg PO 0630 [facility] Stop: 07/28/18 06:31 Last Admin: 01/26/18 05:55 Dose: 88 mcg Metoprolol Succinate (Toprol Xl) 50 mg PO HS [facility] Stop: 07/27/18 21:01 Last Admin: 01/25/18 20:00 Dose: 50 mg Nitroglycerin (Nitroglycerin) 0.4 mg SL Q5MIN PRN PRN Reason: Chest Pain Stop: 07/27/18 18:28 Omeprazole (Prilosec) 20 mg PO DAILY [facility] Stop: 07/28/18 09:01 Ropinirole HCl (Requip) 6 mg PO [facility] Stop: 07/27/18 22:31 Last Admin: 01/25/18 22:49 Dose: 6 mg Laboratory Tests 04/27/17 01/25/18 01/25/18 09:33 14:40 14:40 Hgb 12.2 Creatinine 1.29 H 1.50 H Troponin I 0.03 B-Natriuretic Peptide 01/25/18 01/26/18 01/26/18 14:40 04:28 04:28 Hgb 11.0 L Creatinine 1.16 Troponin I B-Natriuretic Peptide 826 H - Imaging and Cardiology Chest Xray: report reviewed Echo: report reviewed Cardiac cath: report reviewed - EKG Interpretation EKG results cardiology: personally reviewed (ECG with SR, first degree AV block noted, non-specific ST and T wave abnormalities noted.), other (Telemetry reviewed with average HR previous 12 hours noted to be 79, SR. PVCs noted.) Consult Discharge Plan - Plan Referrals: Leeann Pedersen CNP [Primary Care Provider] - <Annetta Waddell - Last Filed: 01/26/18 12:39> Date of Encounter: 01/26/18 - Attending Attestation I examined this patient and my medical decision-making was reviewed with the QA TECH. I agree with the documented findings, disposition and treatment plan as described. Ms. Adams presents with complaints of increased dyspnea. Symptoms have improved. Known cardiomyopathy being followed by [facility]. V/Q scan demonstrated intermediate probability of PE. Known history of DVT on Eliquis reduced dose. CXR with small pleural effusion - possible element of acute on chronic systolic CHF. Currently net negative in I/O's. Troponin negative, no acute ECG findings. SOB largely a component of a pulmonary process. Recommend transitioning IV lasix back to maintenance dosing. Will defer V/Q abnormalities to primary team. Can follow up with [facility] for further management of her cardiomyopathy. Resume ARB if renal function ok after CTA. Will sign off. Please call with questions. Assessment and Plan Discussion w patient/family: The assessment and plan as outlined above was discussed with the patient and/or family members who expressed understanding and agreement. All questions were answered. Thank you for involving us in the care of your patient. Please call with any questions. History of Present Illness History of present illness: Ms. Adams is a 83 year old female All Systems Review: The remainder of the systems were reviewed and are negative Physical Examination Vital Signs, Last 4 Hours Temp Pulse Resp BP Pulse Ox 01/26/18 10:58 98.3 F 86 16 162/85 97 Results 01/26/18 04:28 01/26/18 04:28 Lab Results 01/25/18 01/25/18 01/25/18 19:47 19:47 21:04 WBC Hgb Hct Plt Count INR 1.3 1.2 APTT 29.1 Sodium Potassium Chloride Carbon Dioxide BUN Creatinine Glucose Calcium Magnesium 1.9 01/26/18 01/26/18 04:28 04:28 WBC 9.7 Hgb 11.0 L Hct 35.1 L Plt Count 297 INR APTT Sodium 141 Potassium 3.1 L Chloride 101 Carbon Dioxide 28 BUN 25 H Creatinine 1.16 Glucose 115 H Calcium 9.7 Magnesium
[2018-01-26] MEDS: Isosorbide MONOnitrate (24 HR) 30 MG TAB.ER.24H PO SCH (10:58)
[2018-01-26] MEDS: Anastrozole 1 MG TABLET PO SCH (10:58)
[2018-01-26] MEDS: Furosemide 40 MG/4 ML VIAL IVP SCH (10:58)
[2018-01-26] MEDS ORDERED: Isovue-370 500 ML INFUS..BTL IV ONE (11:42)
--- NOTE | 2018-01-26 15:25 | Internal Med Progress Note ---
Date of Encounter: 01/26/18 Time of Encounter: 15:23 - Assessment and plan (1) Acute respiratory failure with hypoxia Current Visit: Yes Status: Acute Assessment and plan: Improving. Due to congestive heart failure. Initially also suspected of having PE. VQ scan showed intermediate probability but CT angiogram done to confirm shows no PE. We will transition patient off IV heparin back to eliquis. (2) Acute on chronic congestive heart failure Current Visit: Yes Status: Acute Assessment and plan: Continue oral Lasix. Cardiology input appreciated. Patient has had good diuresis. Resume metoprolol and losartan. Qualifiers: Heart failure type: combined systolic and diastolic Qualified Code(s): I50.43 - Acute on chronic combined systolic (congestive) and diastolic ( congestive) heart failure (3) DVT (deep venous thrombosis) Current Visit: Yes Status: Chronic Assessment and plan: History of DVT. On eliquis at home. Currently on IV heparin. We will transition back to eliquis. 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 We will monitor blood sugars and adjust insulin regimen accordingly. Continue diabetic diet. Qualifiers: Diabetes mellitus termite exterminator insulin use: with group home use Diabetes mellitus complication status: with kidney complications Diabetes mellitus complication detail: with chronic kidney disease Chronic kidney disease stage : stage 3 (moderate) Qualified Code(s): E11.22 - Type 2 diabetes mellitus with diabetic chronic kidney disease; N18.3 - Chronic kidney disease, stage 3 ( moderate); Z79.4 - local intermodal truck driver (current) use of insulin (5) Acute kidney injury superimposed on chronic kidney disease Current Visit: Yes Status: Chronic Assessment and plan: Renal function improved today. However she did receive IV contrast for CT angiogram to look for possible PE. We will monitor renal function closely. Will gently hydrate with 250 mL IV fluid. (6) Hypothyroidism Current Visit: Yes Status: Chronic Assessment and plan: Continue levothyroxine Qualifiers: Hypothyroidism type: acquired Qualified Code(s): E03.9 - Hypothyroidism, unspecified (7) Breast cancer Current Visit: Yes Status: Acute Assessment and plan: History of breast cancer. Continue anastrozole Qualifiers: Breast location: unspecified site of breast Estrogen receptor status: unspecified Patient sex: female Laterality: right Qualified Code(s): C50.911 - Malignant neoplasm of unspecified site of right female breast (8) Presence of stent in coronary artery in patient with coronary artery disease Current Visit: Yes Status: Acute Assessment and plan: Continue Plavix, metoprolol - Time Spent With Patient Total time spent is greater than 50% in coordination of care (as documented) at patient's floor/unit and/or counseling patient: - Subjective Interval history: Patient is doing better today. She did have good urine output after she received IV Lasix yesterday. Because her breathing has improved significantly. She denies any chest pain or palpitations. No nausea or vomiting. - Constitutional Vitals: Temp Pulse Resp BP Pulse Ox 98.3 F 86 16 162/85 97 01/26/18 10:58 01/26/18 10:58 01/26/18 10:58 01/26/18 10:58 01/26/18 10:58 General appearance: Present: cooperative, A&O X 3, answers questions appropriately - Respiratory Respiratory exam: Present: CTAB. Absent: accessory muscle use, rales, rhonchi, wheezes - Cardiovascular Cardiovascular exam: Present: RRR, +S1, +S2. Absent: diastolic murmur, gallop, rubs, systolic murmur - GI/Abdominal GI/Abdominal exam: Present: normal bowel sounds, soft, no peritoneal signs. Absent: distended, tenderness - Extremities Exam Extremities exam: Present: warm, radial pulses palpable and symmetrical. Absent : calf tenderness, cyanotic, pedal edema - Neurological Exam Neurological exam: Present: alert, oriented X3, no focal deficits. Absent: facial droop, speech deficit Internal Medicine: Result - Labs CBC & Chem 7: 01/26/18 04:28 01/26/18 04:28 Labs: Short CBC 01/26/18 Range/Units 04:28 WBC 9.7 (4.3-11.1) K/mcL Hgb 11.0 L (11.5-15.4) g/dL Hct 35.1 L (35.3-44.9) % Plt Count 297 (140-400) K/mcL Neutrophils # 6.9 (1.6-8.9) K/mcL BMP 01/26/18 04:28 Sodium 141 Potassium 3.1 L Chloride 101 Carbon Dioxide 28 BUN 25 H Creatinine 1.16 Glucose 115 H Calcium 9.7 - ABG Interpretation ABG results: ABG ABG pH 7.56 pH Units (7.32-7.45) H 01/25/18 19:13 ABG pCO2 33 mmHg (35-45) L 01/25/18 19:13 ABG pO2 80 mmHg (85-104) L 01/25/18 19:13 ABG O2 Saturation 97 % (95-98) 01/25/18 19:13 PT/INR, D-dimer PT 13.9 Seconds (9.4-12.1) H 01/25/18 21:04 - Impressions Impressions Echocardiogram 01/25/18 18:22 Impressions: LVEF 35%. Moderately dilated left ventricle. Global left ventricular systolic dysfunction. Moderate left ventricular diastolic dysfunction. Atypical septal motion consistent with bundle branch block. Normal right ventricular structure and function. Moderate mitral regurgitation. No evidence of pulmonary hypertension. Left Ventricular Wall Motion: Rest Echo Findings All wall segments showed normal motion. Findings: Study Quality * Technically adequate exam. ECG Findings * Sinus rhythm with BBB. Left Ventricle * LVEF 35%. * Moderately dilated left ventricle. * Global left ventricular systolic dysfunction. * Moderate left ventricular diastolic dysfunction. * Atypical septal motion consistent with bundle branch block. Right Ventricle * Normal right ventricular structure and function. Left Atrium * Moderately dilated left atrium. Right Atrium * Mildly dilated right atrium. Aortic Valve * Aortic valve not well visualized. * No aortic regurgitation. * No aortic stenosis. Mitral Valve * Mildly calcified mitral valve leaflets. * Mild mitral annular calcification * Moderate mitral regurgitation. * No mitral stenosis. Tricuspid Valve * Normal tricuspid valve structure and function. * Trace tricuspid regurgitation. * No evidence of pulmonary hypertension. Pulmonic Valve * Normal pulmonic valve structure and function. * No pulmonic regurgitation. Aorta * Normally sized aortic root. Pericardium * The pericardium appears normal. IVC * Normal IVC dimensions and inspiratory collapse. Pulmonary Artery * Normal visualized portions of the main pulmonary artery. Chest X-Ray 01/26/18 04:00 IMPRESSION: Slight interval improvement of left pleural effusion and left basilar atelectasis. Mild interstitial edema. D/ / oJanna Gibson MD / Joanna Gibson MD Interpreting Provider: Joanna Gibson MD Chest CTA 01/26/18 11:42 IMPRESSION: 1. No acute pulmonary embolism or acute aortic disease. 2. Cardiomegaly but no evidence of pericardial effusion. 3. Small bilateral pleural effusions and lower lobe atelectatic changes. There is no evidence of pulmonary edema. D/ / 01/26/2018 14:01:37 Kerline Watson MD / justinay Interpreting Provider: Kerline Watson MD Consult Discharge Plan - Plan Referrals: Leeann Pedersen, [facility] PORTER [Primary Care Provider] -
[2018-01-26] MEDS ORDERED: Ringers Solution, Lactated 1,000 ML IVC SCH ×2 (15:30→18:45)
--- NOTE | 2018-01-26 16:26 | Electrocardiograph Report ---
[place] [id number] Test Date: 2018-01-25 Pat Name: Cori Adams Department: 103 Room: 2A26 Gender: F Composition Tile Layer: : 1935 Requested By: Mickey Barcenas Order Number: [id number] Reading MD: Surya Piña Measurements Intervals [place] Rate: 89 P: 82 ID: [id number] QRS: -26 QRSD: 108 T: 64 QT: 381 QTc: 427 Interpretive Statements SINUS RHYTHM WITH FIRST DEGREE AV BLOCK LEFT VENTRICULAR HYPERTROPHY AND ST-T CHANGE POSSIBLE ANTERIOR MYOCARDIAL INFARCTION, OF INDETERMINATE AGE Electronically Signed On 01-26-2018 16:24:18 EDT by Surya Piña
[2018-01-26] MEDS: Insulin DETEMIR 100 UNIT/ML X5UNITS SQ SCH (21:39)
[2018-01-26] MEDS: Metoprolol XL (24 HR) Succ 50 MG TAB.ER.24H PO SCH (21:43)
[2018-01-26] MEDS: Apixaban 5 MG TABLET PO SCH (21:43)
[2018-01-27 04:55] LABS: Basophils # 0.1 K/mcL (0.0-0.2); Basophils % 0.6 %; Eosinophils # 0.2 K/mcL (0.0-0.6); Eosinophils % 2.1 %; Immature Granulocytes % 0.3 % (0-4); Lymphocytes % 25.8 %; Mean Corpuscular HGB Conc 30.6 g/dL (31.6-35.5); Mean Corpuscular Hemoglobin 24.9 pg (28.0-33.3); Mean Corpuscular Volume 81.6 fL (83.0-100.0); Mean Platelet Volume 10.1 fL (9.4-12.4); Monocytes # 0.6 K/mcL (0.0-1.3); Monocytes % 7.3 %; Neutrophils # 5.6 K/mcL (1.6-8.9); Red Blood Count 4.41 M/mcL (3.82-4.97); Red Cell Distribution Width 16.9 % (11.5-14.5); Segmented Neutrophils % 63.9 %
[2018-01-27 05:02] LABS: Calcium 9.8 mg/dL (8.6-10.3); Potassium 3.5 mEq/L (3.5-5.1)
[2018-01-27 06:44] LABS: Lymphocytes # 2.2 K/mcL (0.6-4.6)
[2018-01-27 06:45] LABS: Platelet Count 263 K/mcL (140-400)
[2018-01-27] MEDS: Insulin LISPRO 300 UNITS/3 ML VIAL SQ SCH ×2 (08:08→13:38)
[2018-01-27] MEDS ORDERED: Furosemide 40 MG TABLET PO SCH (09:00)
[2018-01-27] MEDS: Apixaban 5 MG TABLET PO SCH (09:44)
[2018-01-27] MEDS: Isosorbide MONOnitrate (24 HR) 30 MG TAB.ER.24H PO SCH (09:44)
[2018-01-27] MEDS: Anastrozole 1 MG TABLET PO SCH (09:45)
[2018-01-27] MEDS ORDERED: traZODone 50 MG TABLET PO PRN (10:07)
[2018-01-27 11:35] VITALS: BP 127/60
--- NOTE | 2018-01-27 11:40 | Discharge Summary ---
- NOTES TO OUTPATIENT PROVIDER Notes to Outpatient Provider: Patient was hospitalized here with acute respiratory failure and hypoxia along with acute congestive heart failure. Initial she was treated with IV Lasix. She also underwent VQ scan to look for possible PE given her prior history of deep venous thrombosis. VQ scan showed intermediate probability. She then underwent chest CTA to confirm this diagnosis and this did not show any pulmonary embolism. She is now doing much better and has been adequately diuresed with Lasix. She has been transitioned to oral Lasix and is stable to be discharged back home. She is on eliquis for anticoagulation and will continue to take the same. Date of Encounter: 01/27/18 Time of Encounter: 11:38 - Discharge Diagnosis (1) Acute respiratory failure with hypoxia Priority: Primary Status: Acute (2) Acute on chronic congestive heart failure Priority: Secondary Status: Acute Qualifiers: Heart failure type: combined systolic and diastolic Qualified Code(s): I50.43 - Acute on chronic combined systolic (congestive) and diastolic ( congestive) heart failure (3) DVT (deep venous thrombosis) Priority: Secondary Status: Chronic Qualifiers: DVT location: lower extremity Affected thrombotic vein of extremity: unspecified lower extremity distal vein Chronicity: chronic Laterality: bilateral Qualified Code(s): I82.5Z3 - 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, bilateral (4) Type 2 diabetes mellitus Priority: Secondary Status: Chronic Qualifiers: Diabetes mellitus rat exterminator insulin use: with snf use Diabetes mellitus complication status: with kidney complications Diabetes mellitus complication detail: with chronic kidney disease Chronic kidney disease stage : stage 3 (moderate) Qualified Code(s): E11.22 - Type 2 diabetes mellitus with diabetic chronic kidney disease; N18.3 - Chronic kidney disease, stage 3 ( moderate); Z79.4 - superintendent container terminal (current) use of insulin (5) Acute kidney injury superimposed on chronic kidney disease Priority: Secondary Status: Chronic (6) Hypothyroidism Priority: Secondary Status: Chronic Qualifiers: Hypothyroidism type: acquired Qualified Code(s): E03.9 - Hypothyroidism, unspecified (7) Breast cancer Priority: Secondary Status: Acute Qualifiers: Breast location: unspecified site of breast Estrogen receptor status: unspecified Patient sex: female Laterality: right Qualified Code(s): C50.911 - Malignant neoplasm of unspecified site of right female breast (8) Presence of stent in coronary artery in patient with coronary artery disease Priority: Secondary Status: Acute Hospital course: Ms. Adams is a 83 year old female Patient with history of atrial fibrillation, diabetes, prior DVT on eliquis, hypertension, hyperlipidemia, CHF was hospitalized here with acute respiratory failure and hypoxia along with acute congestive heart failure. Initial she was treated with IV Lasix. She also underwent VQ scan to look for possible PE given her prior history of deep venous thrombosis. VQ scan showed intermediate probability. She then underwent chest CTA to confirm this diagnosis and this did not show any pulmonary embolism. She is now doing much better and has been adequately diuresed with Lasix. She has been transitioned to oral Lasix and is stable to be discharged back home. She is on eliquis for anticoagulation and will continue to take the same. Discharge discussed with: patient, nurse - Time Spent with Patient Total time spent providing and/or coordinating discharge services: Less than 30 minutes (25 min) - Discharge Medications Home Medications: Apixaban [Eliquis] 2.5 mg PO BID 02/25/15 [History] Insulin Glargine,Hum.rec.anlog [Lantus Solostar] 49 unit SQ HS 02/25/15 [History ] Tramadol HCl [Tramadol HCl ER] 50 mg PO Q6H PRN 02/25/15 [History] Calcitriol [Rocaltrol] 0.25 mcg PO DAILY 01/01/16 [History] Losartan Potassium [Cozaar] 100 mg PO DAILY 01/01/16 [History] Sitagliptin Phosphate [Januvia] 50 mg PO DAILY 01/01/16 [History] Oxygen 2 l .ROUTE HS 12/01/16 [History] Furosemide [Lasix] 40 mg PO BID 05/03/17 [History] Omeprazole Magnesium [Prilosec Otc] 20 mg PO DAILY 05/03/17 [History] Clopidogrel [Plavix] 75 mg PO DAILY #30 tablet 05/04/17 [Rx] Nitroglycerin 0.4 mg SL PRN PRN #30 tab.subl 05/04/17 [Rx] Docusate [Colace] 100 mg PO BID 10 Days #20 capsule 07/21/17 [Rx] Trazodone HCl 50 mg PO HS PRN 08/18/17 [History] Anastrozole [Arimidex] 1 mg PO DAILY #30 tablet 09/04/17 [Rx] Albuterol Sulfate [Albuterol Inhaler] 2 puff IH Q6H PRN 01/25/18 [History] Gabapentin [Neurontin] 100 mg PO TID 01/25/18 [History] Insulin LISPRO [Humalog] 7 - 13 unit SQ TIDWM 01/25/18 [History] Isosorbide MONOnitrate (24 HR) [Imdur] 30 mg PO DAILY 01/25/18 [History] Levothyroxine [Synthroid] 88 mcg PO 0630 01/25/18 [History] Metoprolol Succinate [Toprol Xl] 50 mg PO HS 01/25/18 [History] Potassium Chloride [Klor-Con Sprinkle] 10 meq PO TID 01/25/18 [History] rOPINIRole [Requip] 6 mg PO HS 01/25/18 [History] Allergies/Adverse Reactions: 3 Allergy/AdvReac Type Severity Reaction Status Date / Time antihistamines AdvReac pounding Uncoded 01/25/18 17:51 in head Latex AdvReac Rash - Uncoded 01/25/18 17:51 tested 11-3-14 negative Date of admission: 01/26/18 15:37 Primary care physician: Leeann Pedersen, Consults: 01/25/18 19:05 Consult to Pastoral Services [CONS] Routine Comment: 01/25/18 22:20 Consult to Cardiology [CONS] Routine Comment: Consulting Provider: Card[facility] Reason for Consult: acute on chronic CHF Call Completed: No Consult to Pulmonology [CONS] Routine Consulting Provider: [facility] Reason for Consult: ? pe , spoke to Dr. willett Call Completed: Yes Discharging clinician: Dorina David Anticipated date of discharge: 01/27/18 - Constitutional Vitals: Temp Pulse Resp BP Pulse Ox 97.8 F 83 19 127/60 98 01/27/18 11:35 01/27/18 11:35 01/27/18 11:35 01/27/18 11:35 01/27/18 11:35 General appearance: Present: cooperative, A&O X 3, answers questions appropriately - Respiratory Respiratory exam: Present: CTAB. Absent: accessory muscle use, rales, rhonchi, wheezes - Cardiovascular Cardiovascular exam: Present: RRR, +S1, +S2. Absent: diastolic murmur, gallop, rubs, systolic murmur - GI/Abdominal GI/Abdominal exam: Present: normal bowel sounds, soft, no peritoneal signs. Absent: distended, tenderness - Extremities Exam Extremities exam: Present: tenderness (Lower legs), warm, radial pulses palpable and symmetrical. Absent: calf tenderness, cyanotic, pedal edema - Neurological Exam Neurological exam: Present: CN II-XII intact, oriented X3, no focal deficits. Absent: facial droop, speech deficit - Patient Status Disposition: Home, Self-Care Condition: Good Functional capacity at discharge: independent ambulation Overall status at discharge: patient is progressing back to baseline - Discharge Instructions Instructions: Heart Failure (DC), Acute Respiratory Distress Syndrome (DC), Diabetes Mellitus Type 2 in Adults (DC) Follow Up With: Leeann Pedersen CNP [Primary Care Provider] - (in 1-2 weeks) Johnnie Smalls GROUT MACHINE OPERATOR [Advanced Practice Nurse] - - Diet and Activity Activity: as per physical therapy Diet: diabetic diet, low salt diet
== END 2018-01-27 14:07 | disposition home or self-care (01) | DRG 291 ==
LOC: EMEROO 14:01 → 2ANU 14:01 → SUATTDRO 17:19 → 2ANU 17:35
PROVIDERS: ADMIT Internal Medicine; ATTEND Internal Medicine

== ENCOUNTER 2021-05-02 14:45 | Inpatient (IN) ==
[2021-05-02 17:14] LABS: Basophils # 0.1 K/mcL (0.0-0.2); Basophils % 0.5 %; Eosinophils # 0.1 K/mcL (0.0-0.6); Hematocrit 36.1 % (35.3-44.9); Hemoglobin 11.4 g/dL (11.5-15.4); Immature Granulocytes % 0.6 % (0-4); Lymphocytes # 1.3 K/mcL (0.6-4.6); Lymphocytes % 10.7 %; Mean Corpuscular HGB Conc 31.6 g/dL (31.6-35.5); Mean Corpuscular Hemoglobin 28.3 pg (28.0-33.3); Mean Corpuscular Volume 89.6 fL (83.0-100.0); Mean Platelet Volume 10.4 fL (9.4-12.4); Monocytes # 0.8 K/mcL (0.0-1.3); Monocytes % 6.7 %; Neutrophils # 9.9 K/mcL (1.6-8.9); Platelet Count 278 K/mcL (140-400); Red Blood Count 4.03 M/mcL (3.82-4.97); Red Cell Distribution Width 14.6 % (11.5-14.5); Segmented Neutrophils % 80.5 %; White Blood Count 12.3 K/mcL (4.3-11.1)
[2021-05-02 17:16] LABS: Bacteria,Urine Few per hpf (None-Few); Bilirubin,Urine Negative (Negative); Blood,Urine Small (Negative); Clarity,Urine Clear (Clear); Color,Urine Light-Yellow (Yellow); Glucose,Urine (UA) Normal (Normal); Hyaline Casts,Urine Few per lpf (None Seen); Ketones,Urine Negative (Negative); Leukocyte Esterase,Urine Negative (Negative); Mucus,Urine Few per lpf (None-Few); Nitrite,Urine Negative (Negative); PH,Urine 5.5 pH Units (5.0-8.0); Protein,Urine Negative (Neg-Trace); Specific Gravity,Urine 1.012 (1.010-1.025); Squamous Epithelial Cell,Urine Few per hpf (None-Few); Urobilinogen,Urine Normal (Normal)
[2021-05-02 17:28] LABS: VBG HCO3 27 mEq/L (21-27); VBG PCO2 44 mmHg (41-51); VBG PO2 69 mmHg (25-50)
[2021-05-02 17:36] LABS: Alanine Aminotransferase 9 Units/L (7-52); Albumin 3.8 g/dL (3.5-5.7); Albumin/Globulin Ratio 1.4 (1.1-2.2); Alkaline Phosphatase 70 Units/L (34-104); Aspartate Amino Transferase 11 Units/L (13-39); BUN/Creatinine Ratio 16 (6-26); Bilirubin,Direct 0.2 mg/dL (0.0-0.2); Bilirubin,Indirect 0.8 mg/dL (0.0-1.0); Blood Urea Nitrogen 22 mg/dL (8-23); Calcium 9.1 mg/dL (8.6-10.3); Carbon Dioxide 29 mEq/L (23-29); Chloride 102 mEq/L (98-107); Globulin 2.8 g/dL (2.4-3.5); Glucose 256 mg/dL (70-105); Osmolality,Calculated 298 (280-300); Potassium 4.6 mEq/L (3.5-5.1); Sodium 138 mEq/L (136-145); Total Protein 6.6 g/dL (6.4-8.9); Troponin I < 0.03 ng/mL (< 0.04); eGFR For African Americans 44 (> 60); eGFR For Non-African Americans 37 (> 60)
[2021-05-02 17:44] LABS: Influenza A PCR Negative (Negative); Influenza B PCR Negative (Negative); Resp. Syncytial Virus PCR Negative (Negative)
[2021-05-02 17:45] LABS: SARS-CoV-2 by PCR (In House) Negative (Negative)
[2021-05-02] MEDS ORDERED: DilTIAZem 50 MG/50 ML IV.SOLN IVC SCH (17:45)
[2021-05-02 17:50] LABS: Thyroid Stimulating Hormone 1.234 mcIU/mL (0.340-5.600)
[2021-05-02] MEDS ORDERED: Furosemide 40 MG/4 ML VIAL IVP ONE (18:06)
[2021-05-02] MEDS ORDERED: Acetaminophen 325 MG TABLET PO PRN (19:35)
[2021-05-02] MEDS ORDERED: Ondansetron 4 MG/2 ML VIAL IVP PRN (19:35)
[2021-05-02] MEDS ORDERED: *HR* Promethazine 25 MG/ML VIAL IM PRN (19:35)
[2021-05-02] MEDS ORDERED: Naloxone 0.4 MG/ML INJ IVP PRN (19:35)
[2021-05-02] MEDS ORDERED: Melatonin 3 MG TABLET PO PRN (19:35)
[2021-05-02] MEDS ORDERED: traZODone 50 MG TABLET PO PRN (19:44)
[2021-05-02] MEDS ORDERED: *HR* Metoprolol 5 MG/5 ML VIAL IVP ONE (19:45)
[2021-05-02] MEDS ORDERED: traZODone 50 MG TABLET PO SCH (21:00)
[2021-05-02] MEDS: Gabapentin 100 MG CAPSULE PO SCH (21:39)
[2021-05-02] MEDS: Metoprolol XL (24 HR) Succ 50 MG TAB.ER.24H PO SCH (21:41)
[2021-05-02] MEDS: Apixaban 2.5 MG TABLET PO SCH (21:41)
[2021-05-02] MEDS: Insulin DETEMIR 100 UNIT/ML X5UNITS SUBQ SCH (22:44)
[2021-05-03 03:08] LABS: Basophils # 0.1 K/mcL (0.0-0.2); Basophils % 0.5 %; Eosinophils % 0.3 %; Hematocrit 32.5 % (35.3-44.9); Immature Granulocytes % 0.4 % (0-4); Lymphocytes # 1.9 K/mcL (0.6-4.6); Lymphocytes % 16.5 %; Mean Corpuscular HGB Conc 30.8 g/dL (31.6-35.5); Mean Corpuscular Hemoglobin 27.3 pg (28.0-33.3); Mean Corpuscular Volume 88.8 fL (83.0-100.0); Mean Platelet Volume 10.3 fL (9.4-12.4); Monocytes # 0.9 K/mcL (0.0-1.3); Neutrophils # 8.4 K/mcL (1.6-8.9); Platelet Count 235 K/mcL (140-400); Red Blood Count 3.66 M/mcL (3.82-4.97); Red Cell Distribution Width 14.6 % (11.5-14.5); Segmented Neutrophils % 74.3 %; White Blood Count 11.4 K/mcL (4.3-11.1)
[2021-05-03 03:13] LABS: INR 1.8; Prothrombin Time 20.4 Seconds (9.4-12.1)
[2021-05-03 03:27] LABS: BUN/Creatinine Ratio 16 (6-26); Blood Urea Nitrogen 22 mg/dL (8-23); Calcium 8.8 mg/dL (8.6-10.3); Carbon Dioxide 29 mEq/L (23-29); Chloride 100 mEq/L (98-107); Chol/HDL Ratio 2.9 (0-4.9); Cholesterol 152 mg/dL (< 200); Glucose 205 mg/dL (70-105); HDL Cholesterol 53 mg/dL (40-59); LDL Cholesterol,Calculated 86 mg/dL (< 100); Magnesium 1.9 mg/dL (1.6-2.6); Osmolality,Calculated 295 (280-300); Phosphorous 3.8 mg/dL (2.7-4.5); Potassium 4.1 mEq/L (3.5-5.1); Sodium 138 mEq/L (136-145); Triglycerides 63 mg/dL (< 150); eGFR For African Americans 43 (> 60); eGFR For Non-African Americans 35 (> 60)
[2021-05-03 03:33] LABS: Troponin I < 0.03 ng/mL (< 0.04)
[2021-05-03] MEDS: Apixaban 2.5 MG TABLET PO SCH ×2 (08:08→21:42)
[2021-05-03] MEDS: Metoprolol XL (24 HR) Succ 50 MG TAB.ER.24H PO SCH ×2 (08:09→21:42)
[2021-05-03] MEDS: Furosemide 40 MG/4 ML VIAL IVP SCH ×2 (08:10→21:43)
[2021-05-03] MEDS ORDERED: cefTRIAXone 1,000 MG in Water for inj. (sterile) 10 ML IVP SCH (21:00)
[2021-05-03] MEDS: Gabapentin 100 MG CAPSULE PO SCH (21:42)
[2021-05-03] MEDS: Insulin DETEMIR 100 UNIT/ML X5UNITS SUBQ SCH (21:43)
[2021-05-04 05:44] VITALS: TEMP 98.2
[2021-05-04] MEDS ORDERED: *HR* Dextrose 50 % in Water (Syg) 50 ML SYRINGE ONE (07:21)
[2021-05-04 07:25] VITALS: BP 110/72; PULSE 70; O2SAT 95
[2021-05-04] MEDS ORDERED: Sacubitril/Valsartan 49/51 MG 1 TABLET PO SCH (09:00)
[2021-05-04] MEDS: Apixaban 2.5 MG TABLET PO SCH (09:02)
[2021-05-04] MEDS: Metoprolol XL (24 HR) Succ 50 MG TAB.ER.24H PO SCH (09:02)
[2021-05-04] MEDS: Furosemide 40 MG/4 ML VIAL IVP SCH (09:03)
[2021-05-04] MEDS ORDERED: traZODone 50 MG TABLET PO SCH (21:00)
== END 2021-05-04 17:14 | disposition home or self-care (01) | DRG 291 ==
LOC: SUATTDRO → EMEROOARM 14:45 → 2NENU 14:45 → SUATTDRO 19:54 → 2NENU 21:14
PROVIDERS: ADMIT Family Medicine; ATTEND Internal Medicine